=== PATIENT | female | born 1950 | race Caucasian/White ===

== ENCOUNTER 2016-04-01 21:23 | Observation (INO) | payer OTHER, MEDICARE ==
[2016-04-01] MEDS ORDERED: Sodium Chloride 0.9% 1000 ML 1,000 ML IV SCH (22:00)
[2016-04-01] MEDS ORDERED: DILAUDID 1 MG/ML INJECTION IV ONE (22:00)
[2016-04-01] MEDS ORDERED: Phenergan 25 MG INJ IM ONE (22:00)
--- NOTE | 2016-04-01 22:05 | ERPHSYRPT ---
- History of Present Illness Time Seen by Provider: 04/01/16 21:52 Historian: patient Patient Subjective Stated Complaint: pt ate [employer] at 1630 and thinks she has food poisoning -she vomited 2 times [employer] took zofran witout releif co abd cramping and chilling no fever -noone at home sick Triage Nursing Assessment: pt is awakena and alert and able to answer questions moaning and holding her abd Physician History: CC: vomiting Hx: 65 y/o patient of Dr Walters. She ate [employer] [place] around 4PM. Later started with cramping in abdomen that was severe as well as severe nausea and vomiting not relieved by zofran. Chills but no fever. Normal urination. She had prior nephrectomy and cholecystectomy. No chest pain. Cramping is severe. No diarrhea. Timing/Duration: today Severity of Pain-Max: severe Severity of Pain-Current: severe Allergies/Adverse Reactions: No Known Drug Allergies Allergy (Verified 04/01/16 22:04) Home Medications: Amlodipine Besylate 5 mg [Norvasc 5 mg] 5 mg PO DAILY 10/27/12 [History] Ergocalciferol (Vitamin D2) [Vitamin D2] 50,000 unit PO DAILY 11/06/14 [History] Lisinopril 10 mg [Zestril 10 MG] 10 mg PO DAILY 11/06/14 [History] Hx Tetanus, Diphtheria Vaccination/Date Given: No Hx Influenza Vaccination/Date Given: No Hx Pneumococcal Vaccination/Date Given: No Immunizations Up to Date: Yes - Review of Systems Constitutional: Chills, No Fever Eyes: No Symptoms Ears, Nose, & Throat: No Symptoms Respiratory: No Cough, No Dyspnea Cardiac: No Chest Pain Abdominal/Gastrointestinal: Abdominal Pain, Nausea, Vomiting, No Diarrhea Genitourinary Symptoms: No Dysuria Skin: No Rash Neurological: No Focal Weakness, No Headache, No Parasthesia All Other Systems: Reviewed and Negative - Past Medical History Pertinent Past Medical History: Yes Neurological History: No Pertinent History ENT History: No Pertinent History Cardiac History: Hypertension Respiratory History: No Pertinent History Endocrine Medical History: No Pertinent History Musculoskeletal History: No Pertinent History GI Medical History: No Pertinent History History: No Pertinent History Psycho-Social History: No Pertinent History Female Reproductive Disorders: No Pertinent History Other Medical History: 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 - Past Surgical History Past Surgical History: Yes Neuro Surgical History: No Pertinent History Cardiac: No Pertinent History Respiratory: No Pertinent History Gastrointestinal: No Pertinent History Genitourinary: Kidney Surgery Musculoskeletal: No Pertinent History Other Surgical History: KIDNEY REMOVED - Social History Smoking Status: Former smoker Exposure to second hand smoke: No Drug Use: none Patient Lives Alone: No - Female History Hx Last Menstrual Period: na - Nursing Vital Signs Nursing Vital Signs: Initial Vital Signs Temperature 98.8 F Temperature Source Oral Pulse Rate 70 Respiratory Rate 16 Blood Pressure 152/78 Pain Intensity 0 - Physical Exam General Appearance: alert, other (pleasant lady) Eye Exam: PERRL/EOMI, No scleral icterus Ears, Nose, Throat Exam: normal ENT inspection, dry mucous membranes Neck Exam: normal inspection, non-tender, supple Respiratory Exam: normal breath sounds, lungs clear Cardiovascular Exam: regular rate/rhythm Gastrointestinal/Abdomen Exam: soft, tenderness (diffuse), distention, guarding (mild) Extremity Exam: normal inspection, No tenderness Neurologic Exam: alert, oriented x 3, cooperative, sensation nml, No motor deficits Skin Exam: warm, dry, pale - Course Nursing assessment & vital signs reviewed: Yes EKG Interpreted by Me: RATE (66), Sinus Rhythm, NORMAL AXIS, NORMAL INTERVALS, NORMAL QRS (with somewhat poor R progression), Non-specific ST Changes - Radiology Exams AAS X-ray Interpretation: Reviewed by me (nonspecific bowel gas pattern) - CT Exams abd/pelvis CT Interpretation: Tele-radiologist Report (small free fluid, small right pleural effusion) Ordered Tests: Active Orders 24 hr Category Date Time Status Cath for Specimen-Straight STAT Care 04/01/16 22:00 Active EKG-ER Only STAT Care 04/01/16 22:00 Active IV Insertion STAT Care 04/01/16 22:00 Active NPO (ED) STAT Care 04/01/16 22:00 Active ABDOMEN AND PELVIS W/0 CONTRAS [CT] Stat Exams 04/01/16 23:17 Taken OBSTR/ACUTE ABDOMEN SERIES Stat Exams 04/01/16 22:00 Taken CBC W DIFF Stat Lab 04/01/16 21:46 Completed CMP Stat Lab 04/01/16 21:46 Completed LIPASE Stat Lab 04/01/16 21:46 Completed Lactic Acid Urgent Lab 04/01/16 22:00 Ordered UA W/ MICROSCOPIC Stat Lab 04/01/16 23:00 Completed Medication Summary Generic Name Dose Route Start Last Admin Trade Name Cherry PRN Reason Stop Dose Admin Sodium Chloride 1,000 mls @ 200 mls/hr 04/01/16 22:00 04/01/16 22:11 Sodium Chloride 0.9% 1000 Ml IV 05/01/16 21:59 200 mls/hr .Q5H ATILIO Administration Discontinued Medications Generic Name Dose Route Start Last Admin Trade Name Cherry PRN Reason Stop Dose Admin Hydromorphone HCl 0.5 mg 04/01/16 22:00 04/01/16 22:11 Dilaudid 1 Mg/Ml Injection IV 04/01/16 22:01 0.5 mg STAT ONE Administration Hydromorphone HCl Confirm 04/01/16 22:08 Dilaudid 1 Mg/Ml Injection Administered 04/01/16 22:09 Dose 1 mg .ROUTE .STK-MED ONE Sodium Chloride Confirm 04/01/16 22:09 Sodium Chloride 0.9% 1000 Ml Administered 04/01/16 22:10 Dose 1,000 mls @ ud .ROUTE .STK-MED ONE Ondansetron HCl 4 mg 04/01/16 23:24 04/01/16 23:26 Zofran 4 Mg/2 Ml Vial IV 04/01/16 23:25 4 mg STAT ONE Administration Ondansetron HCl Confirm 04/01/16 23:25 Zofran 4 Mg/2 Ml Vial Administered 04/01/16 23:26 Dose 4 mg .ROUTE .STK-MED ONE Promethazine HCl 12.5 mg 04/01/16 22:00 04/01/16 22:11 Phenergan 25 Mg Inj IM 04/01/16 22:01 12.5 mg STAT ONE Administration Promethazine HCl Confirm 04/01/16 22:06 Phenergan 25 Mg Inj Administered 04/01/16 22:07 Dose 25 mg .ROUTE .STK-MED ONE Promethazine HCl 25 mg 04/02/16 00:09 Phenergan 25 Mg PO 04/02/16 00:10 STAT ONE Lab/Rad Data: Laboratory Result Diagrams 04/01/16 21:46 04/01/16 21:46 Laboratory Results 04/01/16 04/01/16 04/01/16 Range/Units 23:00 21:46 21:46 WBC 13.0 H (4.0-10.5) K/mm3 RBC 5.10 (4.1-5.4) M/mm3 Hgb 14.5 (12.0-16.0) gm/dl Hct 43.6 (35-47) % MCV 85.5 (78-100) fl MCH 28.4 (26-32) pg MCHC 33.3 (32-36) g/dl RDW 13.6 (11.5-14.0) % Plt Count 236 (150-450) K/mm3 MPV 10.8 H (6-9.5) fl Gran % 67.8 H (36.0-66.0) % Lymphocytes % 21.2 L (24.0-44.0) % Monocytes % 9.3 (0.0-12.0) % Eosinophils % 1.5 (0.00-5.0) % Basophils % 0.2 (0.0-0.4) % Basophils # 0.03 (0-0.4) Sodium 142 (136-145) mEq/L Potassium 4.0 (3.5-5.1) mEq/L Chloride 104 (98-107) mEq/L Carbon Dioxide 26.8 (21-32) mEq/L Anion Gap 15.0 (5-15) MEQ/L BUN 23 H (9-20) mg/dL Creatinine 1.65 H (0.55-1.30) mg/dl Estimated GFR 33 ML/MIN Glucose 132 H (70-110) MG/DL Calcium 8.5 (8.5-10.1) mg/dL Total Bilirubin 0.7 (0.2-1.0) mg/dL AST 35 (15-37) U/L ALT 32 (12-78) U/L Alkaline Phosphatase 99 (46-116) U/L Serum Total Protein 7.8 (6.4-8.2) gm/dL Albumin 4.0 (3.4-5.0) g/dL Lipase 253 (73-393) U/L Ur Collection Type CATH Urine Color YELLOW (YELLOW) Urine Appearance CLEAR (CLEAR) Urine pH 6.5 (5-6) Ur Specific Foley 1.020 (1.005-1.025) Urine Protein NEGATIVE (Negative) Urine Glucose (UA) NEGATIVE (NEGATIVE) mg/dL Urine Ketones TRACE (NEGATIVE) Urine Nitrite NEGATIVE (NEGATIVE) Urine Bilirubin NEGATIVE (NEGATIVE) Urine Urobilinogen 1 (0-1) mg/dL Urine WBC (Auto) NEGATIVE (NEGATIVE) Urine RBC (Auto) TRACE-INTACT (0-5) Diaz/ul Urine Microscopic RBC 2-5 (0-2) /HPF Urine Microscopic WBC 0-2 (0-5) /HPF Ur Epithelial Cells RARE (FEW) /HPF Urine Bacteria RARE (NEGATIVE) /HPF Specimen Received 04/01/16 2300 - Progress Progress Note: 04/02/16 00:10 Pt feels better with meds and IVF. She has solitary kidney. The creat is stable. She wants to go home with phenergan pills. Will release with instr. Counseled pt/family regarding: lab results, diagnosis, need for follow-up, rad results - Departure Time of Disposition: 00:11 Departure Disposition: Home Clinical Impression: Vomiting Qualifiers: Vomiting type: unspecified Vomiting Intractability: intractable Nausea presence : with nausea Qualified Code(s): R11.2 - Nausea with vomiting, unspecified Condition: Fair Critical Care Time: No Referrals: SADA WALTERS MD [Primary Care Provider] - Instructions: Vomiting -- Adult Additional Instructions: VOMITING AND DIARRHEA 1. Take only small amounts of clear, cool liquids at frequent intervals as tolerated for the next 24-48 hours. Avoid milk products and orange juice. Clear liquids are those liquids which you can see through. 2. Pedialyte and popsicles are recommended clear liquids. 3. If the condition worsens you should contact your family physician or return to the emergency department for re-evaluation. Rx phenergan tablet every 6 hours for nausea. No driving tonite or while taking phenergan. Off work Monday. Follow up with Dr Walters next week. Return for high fever, passing blood, worsened pain or concerns. Prescriptions: Promethazine HCl 25 mg [Phenergan 25 mg] 25 mg PO Q6H PRN PRN #10 tablet PRN Reason: Nausea/Vomiting
[2016-04-01] MEDS ORDERED: Phenergan 25 MG INJ ONE (22:06)
[2016-04-01] MEDS ORDERED: DILAUDID 1 MG/ML INJECTION ONE (22:08)
[2016-04-01 22:09] LABS: BASOPHIL % 0.2 % (0.0-0.4); Eosinophil % 1.5 % (0.00-5.0); Granulocytes % 67.8 % (36.0-66.0); Lymphocytes % 21.2 % (24.0-44.0); Mean Cell Volume 85.5 fl (78-100); Mean Corpuscular Hemoglobin 28.4 pg (26-32); Mean Platelet Volume 10.8 fl (6-9.5); Monocytes % 9.3 % (0.0-12.0); Platelet Count 236 K/mm3 (150-450); Red Cell Distribution Width 13.6 % (11.5-14.0)
[2016-04-01] MEDS ORDERED: Sodium Chloride 0.9% 1000 ML 1,000 ML ONE (22:09)
[2016-04-01 22:20] LABS: BILIRUBIN,TOTAL 0.7 mg/dL (0.2-1.0); Carbon Dioxide 26.8 mEq/L (21-32); Total Protein 7.8 gm/dL (6.4-8.2)
[2016-04-01] MEDS ORDERED: Zofran 4 MG/2 ML VIAL IV ONE (23:24)
[2016-04-01] MEDS ORDERED: Zofran 4 MG/2 ML VIAL ONE (23:25)
[2016-04-01 23:32] LABS: COMPLETE URINE MICROSCOPIC? YES; Collection Type CATH; Ph 6.5 (5-6)
[2016-04-01 23:33] LABS: Bacteria RARE /HPF (NEGATIVE); Epithelial Cells RARE /HPF (FEW); WBC 0-2 /HPF (0-5)
[2016-04-02] MEDS ORDERED: PHENERGAN 25 MG ONE (00:13)
[2016-04-02] MEDS: PHENERGAN 25 MG PO ONE ×2 (00:16→03:33)
[2016-04-02] MEDS ORDERED: Phenergan 25 MG INJ IM ONE (00:40)
[2016-04-02] MEDS ORDERED: DILAUDID 1 MG/ML INJECTION IV ONE ×2 (00:40→00:43)
[2016-04-02] MEDS ORDERED: Phenergan 25 MG INJ ONE (00:44)
[2016-04-02] MEDS ORDERED: DILAUDID 1 MG/ML INJECTION ONE (00:44)
[2016-04-02] MEDS ORDERED: Sodium Chloride 0.9% 1000 ML 1,000 ML ONE (00:44)
[2016-04-02] MEDS: Sodium Chloride 0.9% 1000 ML 1,000 ML IV SCH ×2 (00:50→08:41)
[2016-04-02] MEDS ORDERED: DILAUDID 2 MG INJECTION IV PRN (02:03)
[2016-04-02] MEDS ORDERED: Zofran 4 MG/2 ML VIAL IV PRN (02:03)
[2016-04-02 05:49] LABS: BASOPHIL % 0.2 % (0.0-0.4); Eosinophil % 0.5 % (0.00-5.0); Granulocytes % 78.9 % (36.0-66.0); Lymphocytes % 11.7 % (24.0-44.0); Mean Cell Volume 87.3 fl (78-100); Mean Corpuscular Hemoglobin 28.1 pg (26-32); Mean Platelet Volume 10.6 fl (6-9.5); Monocytes % 8.7 % (0.0-12.0); Platelet Count 218 K/mm3 (150-450); Red Blood Count 4.48 M/mm3 (4.1-5.4); Red Cell Distribution Width 13.7 % (11.5-14.0); White Blood Count 11.2 K/mm3 (4.0-10.5)
[2016-04-02 06:21] LABS: ALBUMIN 3.2 g/dL (3.4-5.0); ANION GAP 13.5 MEQ/L (5-15); BILIRUBIN,TOTAL 0.7 mg/dL (0.2-1.0); Carbon Dioxide 24.6 mEq/L (21-32); Potassium 4.7 mEq/L (3.5-5.1); Total Protein 6.4 gm/dL (6.4-8.2)
--- NOTE | 2016-04-02 08:57 | XRAY ---
Indication: Abdominal pain and emesis. Comparison: KUB of November 11, 2014. 2 views of the abdomen demonstrates mild air distended bowel loops with synchronous fluid leveling, ileus versus enteritis. No focal bowel dilatation, obstruction, or free air. Cholecystectomy and right nephrectomy clips. Remaining solid organs are unremarkable. Osseous structures intact with spinal degenerative changes. Single PA chest slightly underinflated and clear. Heart is not enlarged. Bony thorax intact. Impression: Mild distended bowel loops with synchronous flow leveling, ileus versus enteritis. Nonacute one view chest.
--- NOTE | 2016-04-02 08:58 | XRAY ---
Indication: Abdominal pain, nausea, and vomiting. Multiple contiguous axial images obtained through the abdomen and pelvis without contrast as ordered. Comparison: November 10, 2014 Lung bases demonstrates tiny right base effusion. Lung bases otherwise clear. Heart is not enlarged. Stomach and small bowel loops are moderately fluid distended with synchronous fluid leveling, ileus versus gastroenteritis. Small pelvic free fluid. No walled off fluid collection or free air. Colon demonstrates mild scatter colonic fecal debris. Appendix not seen. There has been right total nephrectomy and cholecystectomy. Fatty liver without focal solid/cystic mass. Remaining pancreas, spleen, adrenal glands, left kidney, left ureter, urinary bladder, and uterus appear unremarkable for noncontrast exam. Minimal aortoiliac calcifications without AAA. Osseous structures intact with mild degenerative changes throughout the spine. Impression: 1. Fluid distended stomach and small bowel loops with synchronous fluid leveling. Rule out ileus versus gastroenteritis. Small pelvic free fluid may be reactive. 2. Incidental fatty liver and tiny right lung base effusion. Comment: Preliminary interpretation was made by [facility]. Stomach and bowel findings not reported. I gave telephone report to Dr. Black in the ER at 0850 hrs. on August 31, 2016. CTDI is 21.48
[2016-04-02] MEDS ORDERED: Pepcid 20 MG VIAL IV SCH (10:00)
[2016-04-02] MEDS ORDERED: Zestril 10 MG PO SCH (10:00)
[2016-04-02 16:20] VITALS: BP 141/67; PULSE 65; O2SAT 98
--- NOTE | 2016-04-02 20:22 | XRAY ---
Indication: Food poisoning. Comparison: One day earlier. KUB demonstrates nonspecific nonobstructed bowel gas pattern again with cholecystectomy clips and spinal degenerative changes. No new or acute findings.
[2016-04-03] MEDS ORDERED: NORVASC 5 MG PO SCH (10:00)
[2016-04-04] MEDS ORDERED: VITAMIN D2 PO SCH (10:00)
--- NOTE | 2016-04-05 11:14 | DS ---
DISCHARGE DIAGNOSES: 1) NAUSEA/VOMITING, RESOLVED. 2) ABDOMINAL PAIN, RESOLVED. HOSPITAL COURSE: Queta Austin is a 65 year-old woman with past medical history of hypertension, chronic renal insufficiency. She presented to the emergency room yesterday with episodes of abdominal cramping, multiple episodes of nausea, vomiting which were note relieved with Zofran. She had chills but no fever. She reported no diarrhea or urinary complaints. The symptoms had started reportedly after she ate [employer] yesterday at around 1630 hours. Upon initial evaluation in the emergency room she was noted to have blood pressure 152/70, heart rate 70, respiratory rate 16, and temperature 98.8F. She was treated with Dilaudid 0.5 mg IV x1, Dilaudid 1 mg IV x1, Zofran 4 mg IV x1, normal saline 1 liter, Phenergan 12.5 mg IM x1, Phenergan 25 mg p.o. x1. Subsequently plan was to send her home however her nausea had returned and she was admitted to medical floor for observation. Since admission she has had no further recurrence of nausea, vomiting, abdominal cramping/pain at all since about 0200 hours this morning. She states that she has been able to eat fine and has been ambulating without difficulty. She feels well and is wishing to go home today. PAST MEDICAL HISTORY: As noted above. 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 SOCIAL HISTORY: The patient is a former smoker, denies illicit drug use. FAMILY HISTORY: Noncontributory. MEDICATIONS: Current medications were reviewed. The patient states that she does alternate between blood pressure medications however those are being directed by nephrology recommendations. ALLERGIES: NKDA. REVIEW OF SYSTEMS: Denies headache or dizziness. Denies chest pain, increased shortness of breath or cough. History of abdominal pain, nausea and vomiting that has resolved. Denies constipation, diarrhea. Denies urinary complaints. PHYSICAL EXAMINATION: Elderly woman lying comfortably in bed, not in acute distress. VITAL SIGNS: Blood pressure 141/67, heart rate 65, respiratory rate 20, temperature 97.8F. Oxygen saturation 97% on room air. HEENT: No pallor or icterus is noted. NECK: No JVD is present. CVS: S1, S2 present. RESPIRATORY: Breath sounds are bilaterally diminished and clear to auscultation. ABDOMEN: Obese, soft, nontender. NEURO: She is alert, oriented x3. Evaluation of motor strength upper and lower extremities reveals grossly intact motor strength. EXTREMITIES: No edema on bilateral lower extremities. LABORATORY DATA AND TESTS: Labs from 04/01/2016 were reviewed. Today's labs showed CBC with white blood cell count 11.2 otherwise unremarkable. Today's CMP showed chloride of 109, BUN 23, creatinine 1.50, glucose 126. Lipase within normal limits. UA showed rare bacteria, epithelial cells, trace red blood cells. Acute abdomen series from 04/01/2016 showed mild distended bowel loops with synchronous flow leveling, ileus versus enteritis nonacute. CT scan of abdomen and pelvis showed fluid distended stomach and small bowel loops with increased fluid leveling; rule out ileus versus gastroenteritis, fatty liver, antilipid deficiency. ASSESSMENT: As noted above. PLAN: The patient was admitted with intractable nausea and vomiting after eating at [facility]. She underwent work up and treatment. As noted she has clinically improved and her symptoms have resolved. She is tolerating diet well. She remained hemodynamically stable. She was ambulated without difficulty and has tolerated diet. Will obtain follow up KUB. If negative will discharge the patient home. Will continue PRN Protonix. Also will add antibiotics for possible urinary tract infection in addition to being placed on Protonix. Please refer to discharge medication list from 04/02/2016 for details of medication list on discharge. I have advised the patient to obtain repeat CMP and CBC in the next three to four days and follow up with Dr. Gracia in ten days. Compliance with diet and medications was stressed. I have advised her to return to the Emergency Room [facility] if any new signs and symptoms or reappearance of previous signs and symptoms are noted. The patient's clinical condition, work-up results and plan of management were discussed with her. She seems to be in understanding and agreement.
== END 2016-04-02 19:50 | disposition home or self-care (01) ==
LOC: ED 21:23 → MED SURG 04-02 01:51
PROVIDERS: ADMIT General Practice; ATTEND General Practice
DX: R11.2 Nausea with vomiting, unspecified (principal); R10.9 Unspecified abdominal pain; I12.9 Hypertensive chronic kidney disease with stage 1 through stage 4 chronic kidney disease, or unspecified chronic kidney disease; N18.9 Chronic kidney disease, unspecified
CPT/HCPCS: 36000; 36415; 74000; 74022; 74176; 80053; 81000; 83605; 83690; 85025; 93005; 96360; 96361; 96372; 96374; 96375; 96376; 99284; G0378; J1170; J2405; J2550; P9612

== ENCOUNTER 2023-03-19 10:34 | Observation (INO) | payer MEDICARE ==
[2023-03-19] MEDS ORDERED: DUONEB 0.5-3 MG/3 ml Neb IH ONE ×2 (11:39→11:42)
[2023-03-19 11:57] LABS: Absolute Neutrophil Ct (ANC) 5.95 x10^3/uL (1.4-6.9); BASOPHIL % 0.4 % (0.0-0.4); Basophil (Absolute #) 0.03 x10^3/uL (0-0.4); Eosinophil % 0.9 % (0.00-5.0); Eosinophil (Absolute #) 0.07 x10^3/uL (0-0.5); Hematocrit 46.7 % (35-47); Hemoglobin 15.3 g/dL (12.0-16.0); IMMATURE GRAN # 0.02 x10^3u/L (0.00-0.03); IMMATURE GRAN % 0.3 % (0.00-0.4); Lymphocyte (Absolute #) 1.24 x10^3/uL (1.0-4.6); Lymphocytes % 15.8 % (24.0-44.0); Mean Cell Volume 86.5 fL (78-100); Mean Corpuscular Hemoglobin 28.3 pg (26-32); Mean Corpuscular Hgb Concent. 32.8 g/dL (32-36); Mean Platelet Volume 10.6 fL (7.5-11.0); Monocyte (Absolute #) 0.52 x10^3/uL (0.0-1.3); Monocytes % 6.6 % (0.0-12.0); Platelet Count 241 x10^3/uL (150-450); Red Cell Distribution Width 13.2 % (11.5-14.0); White Blood Count 7.8 x10^3/uL (4.0-10.5)
[2023-03-19 12:14] LABS: ALBUMIN 4.3 g/dL (3.5-5.0); ANION GAP 15.8 MEQ/L (5-15); BILIRUBIN,TOTAL 1.5 mg/dL (0.2-1.3); Creatinine 1 1.99 mg/dL (0.52-1.04); EST GLOMERULAR FILTRATION RATE 26.1 ML/MIN; Potassium 4.2 mmol/L (3.5-5.1); Total Protein 7.9 g/dL (6.3-8.2)
[2023-03-19 12:58] LABS: INFLUENZA A NEGATIVE (NEGATIVE); INFLUENZA B NEGATIVE (NEGATIVE); RESPIRATORY SYNCTIAL VIRUS NEGATIVE (NEGATIVE); SARS-CoV-2 Xpert Express NEGATIVE (NEGATIVE)
[2023-03-19] MEDS ORDERED: BABY ASPIRIN 81 MG CHEW PO ONE (13:02)
[2023-03-19] MEDS ORDERED: Zithromax 500 MG/ 250 ML NaCl Premix 500 MG/250 ML IVPB IV STA (13:03)
[2023-03-19] MEDS ORDERED: ROCEPHIN 1 Gm-D5w 50 ml Bag** 1 G/50 ML IVPB IV STA (13:03)
--- NOTE | 2023-03-19 13:08 | ERPHSYRPT ---
- History of Present Illness Time Seen by Provider: 03/19/23 11:21 Source: patient Exam Limitations: no limitations Patient Subjective Stated Complaint: pt here for cough and sob for a week now, no fever Triage Nursing Assessment: pt alert, walked in , sob with excertion, slight cough,nonproductive, chest clear, no edema noted Physician History: 72 years old female with a history of hypertension, hyperlipidemia, questionable history of congestive heart failure, CKD presented in the ER with 1 week history of cough and congestion with progressive worsening since morning. Patient reports earlier this morning she was having hard time breathing, was feeling weak fatigued tired. Having increased nonproductive cough with no fever or chills. Denies any known sick contact. Denies any chest pain or palpitations. No known history of coronary artery disease.Patient was hypoxic to 87/88% on presentation and improved with 2 L oxygen to 96% Allergies/Adverse Reactions: No Known Drug Allergies Allergy (Verified 03/19/23 10:35) Home Medications: Amlodipine Besylate 5 mg [Norvasc 5 mg] 5 mg PO UD 10/27/12 [History] Ergocalciferol (Vitamin D2) [Vitamin D2] 50,000 unit PO WEEKLY 11/06/14 [History] Indapamide 1 ea DAILY 03/19/23 [History] Hx Tetanus, Diphtheria Vaccination/Date Given: No Hx Influenza Vaccination/Date Given: No Hx Pneumococcal Vaccination/Date Given: No Immunizations Up to Date: Yes Travel Risk - International Travel Have you traveled outside of the country in past 3 weeks: No - Coronavirus Screening Are you exhibiting any of the following symptoms?: Yes Symptoms: Cough: New Onset, Shortness of Breath Close contact with a COVID-19 positive Pt in past 14-21 Days: No - Vaccine Status Have you recieved a Covid-19 vaccination: Yes 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 - Vaccination Dates Date of 2cond Vaccination (if applicable): 2020 - Review of Systems Constitutional: Fatigue, Weakness Eyes: No Symptoms Ears, Nose, & Throat: No Symptoms Respiratory: Cough, Dyspnea, Dyspnea on Exertion (LORENZO), Wheezing Cardiac: No Symptoms Abdominal/Gastrointestinal: No Symptoms Genitourinary Symptoms: No Symptoms Musculoskeletal: No Symptoms Skin: No Symptoms Neurological: No Symptoms Endocrine: No Symptoms Hematologic/Lymphatic: No Symptoms - Past Medical History Pertinent Past Medical History: Yes Neurological History: No Pertinent History ENT History: No Pertinent History Cardiac History: Hypertension Respiratory History: No Pertinent History Endocrine Medical History: Other Musculoskeletal History: Osteoarthritis GI Medical History: No Pertinent History History: Other Psycho-Social History: No Pertinent History Female Reproductive Disorders: No Pertinent History Other Medical History: 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 HX CHOLECYSTECTOMY 2014. - Past Surgical History Past Surgical History: Yes Neuro Surgical History: No Pertinent History Cardiac: No Pertinent History Respiratory: No Pertinent History Gastrointestinal: Cholecystectomy Genitourinary: Kidney Surgery Musculoskeletal: No Pertinent History Female Surgical History: No Pertinent History Other Surgical History: KIDNEY REMOVED - Social History Smoking Status: Former smoker Exposure to second hand smoke: No Drug Use: none Patient Lives Alone: No - Nursing Vital Signs Nursing Vital Signs: Initial Vital Signs Respiratory Rate 20 03/19/23 10:34 O2 Sat by Pulse Oximetry 97 03/19/23 10:34 Pain Scale Pain Intensity 9 - Physical Exam General Appearance: no apparent distress, alert Eye Exam: PERRL/EOMI Ears, Nose, Throat Exam: hearing grossly normal, normal ENT inspection Neck Exam: normal inspection, non-tender, supple, full range of motion Respiratory Exam: normal breath sounds, lungs clear Cardiovascular/Chest Exam: normal heart sounds, regular rate/rhythm Abdominal/Gastrointestinal Exam: soft, normal bowel sounds, No tenderness Extremity Exam: non-tender, normal range of motion Neurologic Exam: alert, oriented x 3, cooperative Skin Exam: normal color SpO2 Interpretation: O2 applied SpO2: 92 O2 Delivery: Nasal Cannula - Course EKG Interpreted by Me: RATE ([id number]), Sinus Rhythm, NORMAL AXIS, Q-wave, Non- specific ST Changes Ordered Tests: Active Orders 24 hr Category Date Time Status Rubber Liner STAT Care 03/19/23 11:40 Active EKG-ER Only STAT Care 03/19/23 11:39 Active Oxygen-ED Only Nasal Cannula 2 lpm Care 03/19/23 11:39 Active CHEST 1 VIEW (PORTABLE) Stat Exams 03/19/23 11:19 Taken BLOOD CULTURE Stat Lab 03/19/23 12:15 Received CBC W DIFF Stat Lab 03/19/23 11:12 Completed CMP Stat Lab 03/19/23 11:12 Completed Lactic Acid Stat Lab 03/19/23 11:55 Completed MAGNESIUM Stat Lab 03/19/23 11:58 Completed NT PRO BNPII Stat Lab 03/19/23 11:58 Completed TROPONIN Q4H Lab 03/19/23 11:58 Completed TROPONIN Q4H Lab 03/19/23 15:45 Ordered TROPONIN Q4H Lab 03/19/23 19:45 Ordered UA W/RFX UR CULTURE Stat Lab 03/19/23 11:39 Ordered Respiratory Therapy Assessment DAILY RT 03/19/23 11:49 Active Medication Summary Generic Name Dose Route Start Last Admin Trade Name Freq PRN Reason Stop Dose Admin Azithromycin 500 mg in 250 mls @ 250 mls/hr 03/19/23 13:03 Zithromax 500 Mg/ 250 Ml Nacl Premix IV 03/19/23 14:02 STAT STA Ceftriaxone Sodium/Dextrose 1 g in 50 mls @ 100 mls/hr 03/19/23 13:03 Rocephin 1 Gm-D5w 50 Ml Bag IV 03/19/23 13:32 STAT STA Discontinued Medications Generic Name Dose Route Start Last Admin Trade Name Freq PRN Reason Stop Dose Admin Albuterol/Ipratropium 3 ml 03/19/23 11:39 03/19/23 11:46 Ipratropium/Albuterol Sulfate 3 Ml Ampul.Neb IH 03/19/23 11:40 3 ml STAT ONE Administration Albuterol/Ipratropium Confirm 03/19/23 11:42 Ipratropium/Albuterol Sulfate 3 Ml Ampul.Neb Administered 03/19/23 11:43 Dose 3 ml IH .STK-MED ONE Aspirin 324 mg 03/19/23 13:02 Aspirin 81 Mg Tab.Chew PO 03/19/23 13:03 STAT ONE Lab/Rad Data: Laboratory Result Diagrams 03/19/23 11:12 03/19/23 11:12 Laboratory Results 03/19/23 03/19/23 12 Range/Units 12:05 11:58 11:58 WBC (4.0-10.5) x10^3/uL RBC (4.1-5.4) x10^6/uL Hgb (12.0-16.0) g/dL Hct (35-47) % MCV (78-100) fL MCH (26-32) pg MCHC (32-36) g/dL RDW (11.5-14.0) % Plt Count (150-450) x10^3/uL MPV (7.5-11.0) fL Gran % (36.0-66.0) % Immature Gran % (Auto) (0.00-0.4) % Nucleat RBC Rel Count (0.00-0.1) % Eos # (Auto) (0-0.5) x10^3/uL Immature Gran # (Auto) (0.00-0.03) x10^3u/L Absolute Lymphs (auto) (1.0-4.6) x10^3/uL Absolute Monos (auto) (0.0-1.3) x10^3/uL Absolute Nucleated RBC (0.00-0.01) x10^3u/L Lymphocytes % (24.0-44.0) % Monocytes % (0.0-12.0) % Eosinophils % (0.00-5.0) % Basophils % (0.0-0.4) % Absolute Granulocytes (1.4-6.9) x10^3/uL Basophils # (0-0.4) x10^3/uL Sodium (137-145) mmol/L Potassium (3.5-5.1) mmol/L Chloride (98-107) mmol/L Carbon Dioxide (22-30) mmol/L Anion Gap (5-15) MEQ/L BUN (7-17) mg/dL Creatinine (0.52-1.04) mg/dL Estimated GFR ML/MIN Glucose (74-106) mg/dL Lactic Acid (0.4-2.0) Calcium (8.4-10.2) mg/dL Magnesium (1.6-2.3) mg/dL Total Bilirubin (0.2-1.3) mg/dL AST (14-36) U/L ALT (0-35) U/L Alkaline Phosphatase (38-126) U/L Troponin I 0.141 H* (0.000-0.034) ng/mL NT-Pro-B Natriuret Pep 527 (<300) pg/mL Serum Total Protein (6.3-8.2) g/dL Albumin (3.5-5.0) g/dL Influenza Type A Ag NEGATIVE (NEGATIVE) Influenza Type B Ag NEGATIVE (NEGATIVE) RSV (PCR) NEGATIVE (NEGATIVE) SARS-CoV-2 (PCR) NEGATIVE (NEGATIVE) 03/19/23 03/19/23 03/19/23 Range/Units 11:58 11:55 11:12 WBC (4.0-10.5) x10^3/uL RBC (4.1-5.4) x10^6/uL Hgb (12.0-16.0) g/dL Hct (35-47) % MCV (78-100) fL MCH (26-32) pg MCHC (32-36) g/dL RDW (11.5-14.0) % Plt Count (150-450) x10^3/uL MPV (7.5-11.0) fL Gran % (36.0-66.0) % Immature Gran % (Auto) (0.00-0.4) % Nucleat RBC Rel Count (0.00-0.1) % Eos # (Auto) (0-0.5) x10^3/uL Immature Gran # (Auto) (0.00-0.03) x10^3u/L Absolute Lymphs (auto) (1.0-4.6) x10^3/uL Absolute Monos (auto) (0.0-1.3) x10^3/uL Absolute Nucleated RBC (0.00-0.01) x10^3u/L Lymphocytes % (24.0-44.0) % Monocytes % (0.0-12.0) % Eosinophils % (0.00-5.0) % Basophils % (0.0-0.4) % Absolute Granulocytes (1.4-6.9) x10^3/uL Basophils # (0-0.4) x10^3/uL Sodium 138 (137-145) mmol/L Potassium 4.2 (3.5-5.1) mmol/L Chloride 104 (98-107) mmol/L Carbon Dioxide 22 (22-30) mmol/L Anion Gap 15.8 H (5-15) MEQ/L BUN 20 H (7-17) mg/dL Creatinine 1.99 H (0.52-1.04) mg/dL Estimated GFR 26.1 ML/MIN Glucose 166 H (74-106) mg/dL Lactic Acid 2.0 (0.4-2.0) Calcium 9.0 (8.4-10.2) mg/dL Magnesium 2.1 (1.6-2.3) mg/dL Total Bilirubin 1.50 H (0.2-1.3) mg/dL AST 38 H (14-36) U/L ALT 31 (0-35) U/L Alkaline Phosphatase 109 (38-126) U/L Troponin I (0.000-0.034) ng/mL NT-Pro-B Natriuret Pep (<300) pg/mL Serum Total Protein 7.9 (6.3-8.2) g/dL Albumin 4.3 (3.5-5.0) g/dL Influenza Type A Ag (NEGATIVE) Influenza Type B Ag (NEGATIVE) RSV (PCR) (NEGATIVE) SARS-CoV-2 (PCR) (NEGATIVE) 03/19/23 Range/Units 11:12 WBC 7.8 (4.0-10.5) x10^3/uL RBC 5.40 (4.1-5.4) x10^6/uL Hgb 15.3 (12.0-16.0) g/dL Hct 46.7 (35-47) % MCV 86.5 (78-100) fL MCH 28.3 (26-32) pg MCHC 32.8 (32-36) g/dL RDW 13.2 (11.5-14.0) % Plt Count 241 (150-450) x10^3/uL MPV 10.6 (7.5-11.0) fL Gran % 76.0 H (36.0-66.0) % Immature Gran % (Auto) 0.3 (0.00-0.4) % Nucleat RBC Rel Count 0.0 (0.00-0.1) % Eos # (Auto) 0.07 (0-0.5) x10^3/uL Immature Gran # (Auto) 0.02 (0.00-0.03) x10^3u/L Absolute Lymphs (auto) 1.24 (1.0-4.6) x10^3/uL Absolute Monos (auto) 0.52 (0.0-1.3) x10^3/uL Absolute Nucleated RBC 0.00 (0.00-0.01) x10^3u/L Lymphocytes % 15.8 L (24.0-44.0) % Monocytes % 6.6 (0.0-12.0) % Eosinophils % 0.9 (0.00-5.0) % Basophils % 0.4 (0.0-0.4) % Absolute Granulocytes 5.95 (1.4-6.9) x10^3/uL Basophils # 0.03 (0-0.4) x10^3/uL Sodium (137-145) mmol/L Potassium (3.5-5.1) mmol/L Chloride (98-107) mmol/L Carbon Dioxide (22-30) mmol/L Anion Gap (5-15) MEQ/L BUN (7-17) mg/dL Creatinine (0.52-1.04) mg/dL Estimated GFR ML/MIN Glucose (74-106) mg/dL Lactic Acid (0.4-2.0) Calcium (8.4-10.2) mg/dL Magnesium (1.6-2.3) mg/dL Total Bilirubin (0.2-1.3) mg/dL AST (14-36) U/L ALT (0-35) U/L Alkaline Phosphatase (38-126) U/L Troponin I (0.000-0.034) ng/mL NT-Pro-B Natriuret Pep (<300) pg/mL Serum Total Protein (6.3-8.2) g/dL Albumin (3.5-5.0) g/dL Influenza Type A Ag (NEGATIVE) Influenza Type B Ag (NEGATIVE) RSV (PCR) (NEGATIVE) SARS-CoV-2 (PCR) (NEGATIVE) - Progress Progress: improved, re-examined Air Movement: good Progress Note: 72 years old is evaluated in the ER for cough and shortness of breath. Patient was hypoxic on presentation, placed on 2 L oxygen and improved to 96%. She is given DuoNeb and feeling better on reevaluation. EKG showed sinus rhythm with no acute ST elevations. Chest x-ray no obvious infiltrative processReviewed by me, official report is pending. 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 Patient is chest pain-free. She is offered aspirin which she declined. Elevation in troponin could be secondary to renal cause, no previous comparison available.Will continue to trend cardiac enzymes.Has negative COVID flu and RSV. I believe patient has some element of bronchitis and given a dose of Rocephin and Zithromax. Discussed with Dr. Sutton, reviewed history, workup, agreed with admission. I have discussed the results of workup with patient and family who understand and agree with it. 03/19/23 13:23 Blood Culture(s) Obtained: Yes Antibiotics given: Yes Discussed with Dr.: Other (Dr. Sutton) Will see patient in: hospital (observation) Counseled pt/family regarding: lab results, diagnosis, rad results Medical Desision Making - Independent Historian Additional History obtained from: Relative/friend - Discussion of managment Care discussed with:: hospitalist Reviewed:: Test results Agreed on:: Treatment plan Will see patient: in hospital - Diagnostic Testing Diagnostic test were ordered, analyzed, and reviewed by me: Yes Radiological Interpretation: Interpreted by me, Reviewed by me - Risk of complications The pt has a high risk of morbidity or mortality based on: Decision regarding hospitilization or escalation of hosp level of care - Departure Departure Disposition: Observation Clinical Impression: Acute hypoxic respiratory failure, Acute bronchitis, Elevated troponin Condition: Stable Critical Care Time: No Referrals: SADA WALTERS MD [Primary Care Provider] - Follow up/PCP as directed
[2023-03-19] MEDS ORDERED: ROCEPHIN 1 Gm-D5w 50 ml Bag** 1 G/50 ML IVPB IV ONE (13:19)
[2023-03-19] MEDS ORDERED: Zithromax 500 MG/ 250 ML NaCl Premix 500 MG/250 ML IVPB IV ONE (13:33)
--- NOTE | 2023-03-19 13:57 | PCM.HP ---
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 She presented in the ER with 1 week history of cough andSxs worse with any activity and improves with laying down. Pt reports chronic SOb since having COVID last year. Flu, COVID, and RSV testing negative. Denies any chest pain or palpitations. No known history of coronary artery disease. Patient was hypoxic to 87/88% on presentation and improved with 2 L oxygen to 96%. She was given antibiotics and breathing treatments in the ER. She remains on 2 LNC @ 92%. BL is RA. She does have an elevated troponin but denies CP. She refused aspirin in the ER. Chest XR is pending. Will continue to trend troponins. - Review of Systems Constitutional: Weakness, No Fever, No Chills Eyes: No Symptoms Ears, Nose, & Throat: No Symptoms Respiratory: Cough, Short Of Breath Cardiac: No Chest Pain, No Edema, No Syncope Abdominal/Gastrointestinal: No Abdominal Pain, No Nausea, No Vomiting, No Diarrhea Genitourinary Symptoms: No Dysuria Musculoskeletal: No Back Pain, No Neck Pain Skin: No Rash Neurological: No Dizziness, No Focal Weakness, No Sensory Changes Psychological: No Symptoms Endocrine: No Symptoms Hematologic/Lymphatic: No Symptoms Immunological/Allergic: No Symptoms Medications & Allergies Home Medications: Home Medication List Amlodipine Besylate 5 mg [Norvasc 5 mg] 10 mg PO UD 10/27/12 [History Confirmed 03/19/23] Ergocalciferol (Vitamin D2) [Vitamin D2] 50,000 unit PO WEEKLY 11/06/14 [History Confirmed 03/19/23] Indapamide 2.5 ea PO DAILY 03/19/23 [History Confirmed 03/19/23] Allergies/Adverse Reactions: Allergies Allergy/AdvReac Type Severity Reaction Status Date / Time No Known Drug Allergies Allergy Verified 03/19/23 10:35 - Past Medical History Past Medical History: Yes Neurological History: No Pertinent History ENT History: No Pertinent History Cardiac History: Hypertension Respiratory History: No Pertinent History Endocrine Medical History: Other Musculoskelatal History: Osteoarthritis GI Medical History: No Pertinent History History: Other Pyscho-Social History: No Pertinent History Reproductive Disorders: No Pertinent History Comment: HAD KIDNEY REMOVED DUE TO NONCANCEROUS MASS 2012. HX CHOLECYSTECTOMY 2014. - Past Surgical History Past Surgical History: Yes Neuro Surgical History: No Pertinent History Cardiac History: No Pertinent History Respiratory Surgery: No Pertinent History GI Surgical History: Cholecystectomy Genitourinary Surgical Hx: Kidney Surgery Musculskeletal Surgical Hx: No Pertinent History Female Surgical History: No Pertinent History Other Surgical History: KIDNEY REMOVED - Social History Smoking Status: Former smoker Exposure to second hand smoke: No Alcohol: None Drug Use: none - Physical Exam Vital Signs: Vital Signs - 24 hr Pulse Resp BP Pulse Ox 03/19/23 13:26 92 L 03/19/23 13:16 78 14 142/71 94 L 03/19/23 13:15 86 18 95 03/19/23 13:10 86 12 95 03/19/23 13:00 86 14 94 L 03/19/23 12:50 80 3 L 94 L 03/19/23 12:40 87 11 L 94 L 03/19/23 12:33 85 16 94 L 03/19/23 12:01 78/59 92 L 03/19/23 11:50 88 20 94 L 03/19/23 11:31 126/70 94 L 03/19/23 11:00 105/78 92 L 03/19/23 10:34 20 97 General Appearance: no apparent distress, alert Neurologic Exam: alert, oriented x 3, cooperative, normal mood/affect, nml cerebellar function, nml station & gait, sensation nml, No motor deficits Eye Exam: PERRL/EOMI, eyes nml inspection Ears, Nose, Throat Exam: normal ENT inspection, TMs normal, pharynx normal, moist mucous membranes Neck Exam: normal inspection, non-tender, supple, full range of motion Respiratory Exam: normal breath sounds, lungs clear, No respiratory distress Cardiovascular Exam: regular rate/rhythm, normal heart sounds, normal peripheral pulses Gastrointestinal/Abdomen Exam: soft, normal bowel sounds, No tenderness, No mass Back Exam: normal inspection, normal range of motion, No CVA tenderness, No vertebral tenderness Extremity Exam: normal inspection, normal range of motion, pelvis stable Skin Exam: normal color, warm, dry, No rash Lymphatic Exam: No adenopathy Results - Labs Lab/Micro Results: Lab Results-Last 24 Hours 03/19/23 03/19/23 03/19/23 Range/Units 11:12 11:12 11:55 WBC 7.8 (4.0-10.5) x10^3/uL RBC 5.40 (4.1-5.4) x10^6/uL Hgb 15.3 (12.0-16.0) g/dL Hct 46.7 (35-47) % MCV 86.5 (78-100) fL MCH 28.3 (26-32) pg MCHC 32.8 (32-36) g/dL RDW 13.2 (11.5-14.0) % Plt Count 241 (150-450) x10^3/uL MPV 10.6 (7.5-11.0) fL Gran % 76.0 H (36.0-66.0) % Immature Gran % (Auto) 0.3 (0.00-0.4) % Nucleat RBC Rel Count 0.0 (0.00-0.1) % Eos # (Auto) 0.07 (0-0.5) x10^3/uL Immature Gran # (Auto) 0.02 (0.00-0.03) x10^3u/L Absolute Lymphs (auto) 1.24 (1.0-4.6) x10^3/uL Absolute Monos (auto) 0.52 (0.0-1.3) x10^3/uL Absolute Nucleated RBC 0.00 (0.00-0.01) x10^3u/L Lymphocytes % 15.8 L (24.0-44.0) % Monocytes % 6.6 (0.0-12.0) % Eosinophils % 0.9 (0.00-5.0) % Basophils % 0.4 (0.0-0.4) % Absolute Granulocytes 5.95 (1.4-6.9) x10^3/uL Basophils # 0.03 (0-0.4) x10^3/uL Sodium 138 (137-145) mmol/L Potassium 4.2 (3.5-5.1) mmol/L Chloride 104 (98-107) mmol/L Carbon Dioxide 22 (22-30) mmol/L Anion Gap 15.8 H (5-15) MEQ/L BUN 20 H (7-17) mg/dL Creatinine 1.99 H (0.52-1.04) mg/dL Estimated GFR 26.1 ML/MIN Glucose 166 H (74-106) mg/dL Lactic Acid 2.0 (0.4-2.0) Calcium 9.0 (8.4-10.2) mg/dL Magnesium (1.6-2.3) mg/dL Total Bilirubin 1.50 H (0.2-1.3) mg/dL AST 38 H (14-36) U/L ALT 31 (0-35) U/L Alkaline Phosphatase 109 (38-126) U/L Troponin I (0.000-0.034) ng/mL NT-Pro-B Natriuret Pep (<300) pg/mL Serum Total Protein 7.9 (6.3-8.2) g/dL Albumin 4.3 (3.5-5.0) g/dL Influenza Type A Ag (NEGATIVE) Influenza Type B Ag (NEGATIVE) RSV (PCR) (NEGATIVE) SARS-CoV-2 (PCR) (NEGATIVE) 03/19/23 03/19/23 03/19/23 Range/Units 11:58 11:58 11:58 WBC (4.0-10.5) x10^3/uL RBC (4.1-5.4) x10^6/uL Hgb (12.0-16.0) g/dL Hct (35-47) % MCV (78-100) fL MCH (26-32) pg MCHC (32-36) g/dL RDW (11.5-14.0) % Plt Count (150-450) x10^3/uL MPV (7.5-11.0) fL Gran % (36.0-66.0) % Immature Gran % (Auto) (0.00-0.4) % Nucleat RBC Rel Count (0.00-0.1) % Eos # (Auto) (0-0.5) x10^3/uL Immature Gran # (Auto) (0.00-0.03) x10^3u/L Absolute Lymphs (auto) (1.0-4.6) x10^3/uL Absolute Monos (auto) (0.0-1.3) x10^3/uL Absolute Nucleated RBC (0.00-0.01) x10^3u/L Lymphocytes % (24.0-44.0) % Monocytes % (0.0-12.0) % Eosinophils % (0.00-5.0) % Basophils % (0.0-0.4) % Absolute Granulocytes (1.4-6.9) x10^3/uL Basophils # (0-0.4) x10^3/uL Sodium (137-145) mmol/L Potassium (3.5-5.1) mmol/L Chloride (98-107) mmol/L Carbon Dioxide (22-30) mmol/L Anion Gap (5-15) MEQ/L BUN (7-17) mg/dL Creatinine (0.52-1.04) mg/dL Estimated GFR ML/MIN Glucose (74-106) mg/dL Lactic Acid (0.4-2.0) Calcium (8.4-10.2) mg/dL Magnesium 2.1 (1.6-2.3) mg/dL Total Bilirubin (0.2-1.3) mg/dL AST (14-36) U/L ALT (0-35) U/L Alkaline Phosphatase (38-126) U/L Troponin I 0.141 H* (0.000-0.034) ng/mL NT-Pro-B Natriuret Pep 527 (<300) pg/mL Serum Total Protein (6.3-8.2) g/dL Albumin (3.5-5.0) g/dL Influenza Type A Ag (NEGATIVE) Influenza Type B Ag (NEGATIVE) RSV (PCR) (NEGATIVE) SARS-CoV-2 (PCR) (NEGATIVE) 03/19/23 Range/Units 12:05 WBC (4.0-10.5) x10^3/uL RBC (4.1-5.4) x10^6/uL Hgb (12.0-16.0) g/dL Hct (35-47) % MCV (78-100) fL MCH (26-32) pg MCHC (32-36) g/dL RDW (11.5-14.0) % Plt Count (150-450) x10^3/uL MPV (7.5-11.0) fL Gran % (36.0-66.0) % Immature Gran % (Auto) (0.00-0.4) % Nucleat RBC Rel Count (0.00-0.1) % Eos # (Auto) (0-0.5) x10^3/uL Immature Gran # (Auto) (0.00-0.03) x10^3u/L Absolute Lymphs (auto) (1.0-4.6) x10^3/uL Absolute Monos (auto) (0.0-1.3) x10^3/uL Absolute Nucleated RBC (0.00-0.01) x10^3u/L Lymphocytes % (24.0-44.0) % Monocytes % (0.0-12.0) % Eosinophils % (0.00-5.0) % Basophils % (0.0-0.4) % Absolute Granulocytes (1.4-6.9) x10^3/uL Basophils # (0-0.4) x10^3/uL Sodium (137-145) mmol/L Potassium (3.5-5.1) mmol/L Chloride (98-107) mmol/L Carbon Dioxide (22-30) mmol/L Anion Gap (5-15) MEQ/L BUN (7-17) mg/dL Creatinine (0.52-1.04) mg/dL Estimated GFR ML/MIN Glucose (74-106) mg/dL Lactic Acid (0.4-2.0) Calcium (8.4-10.2) mg/dL Magnesium (1.6-2.3) mg/dL Total Bilirubin (0.2-1.3) mg/dL AST (14-36) U/L ALT (0-35) U/L Alkaline Phosphatase (38-126) U/L Troponin I (0.000-0.034) ng/mL NT-Pro-B Natriuret Pep (<300) pg/mL Serum Total Protein (6.3-8.2) g/dL Albumin (3.5-5.0) g/dL Influenza Type A Ag NEGATIVE (NEGATIVE) Influenza Type B Ag NEGATIVE (NEGATIVE) RSV (PCR) NEGATIVE (NEGATIVE) SARS-CoV-2 (PCR) NEGATIVE (NEGATIVE) - Radiology Impressions Radiology Exams & Impressions: Radiology Procedures Category Date Time Status CHEST 1 VIEW (PORTABLE) Stat Exams 03/19/23 11:19 Taken - Other Procedures and Tests Respiratory Therapy 03/19/23 13:43 Oxygen Nasal Cannula 2 lpm Respiratory Therapy Consult ONCE Assessment/Plan (1) Acute bronchitis Current Visit: Yes Status: Acute Assessment & Plan: - rocephin and zithromax gave in ER- continue zithromax - Duoneb gave in ER- cont. - Chest XR pending - 2LNC 92%- Baseline is RA - COVID/Flu/RSV negative - RT eval and treat - Guaifensin, benzonatate Code(s): J20.9 - ACUTE BRONCHITIS, UNSPECIFIED (2) Acute on chronic renal failure Current Visit: Yes Status: Acute Assessment & Plan: - Baseline creat 1.5 - Creat. 1.99 - encourage oral fluid intake - Hold thiazide diuretic- Indapamide - UA with culture pending Code(s): N17.9 - ACUTE KIDNEY FAILURE, UNSPECIFIED; N18.9 - CHRONIC KIDNEY DISEASE, UNSPECIFIED (3) Elevated troponin Current Visit: Yes Status: Acute Assessment & Plan: - Trop 0.141- trend - EKG reviewed in ER and non-concerning - Refused ASA in ER - Denies CP - may be 2:2 STEFANO - tele - heart healthy diet. Code(s): R79.89 - OTHER SPECIFIED ABNORMAL FINDINGS OF BLOOD CHEMISTRY (4) HTN (hypertension) Current Visit: Yes Status: Acute Assessment & Plan: - BP stable - hold Indapamide - Continue amlodipine Code(s): I10 - ESSENTIAL (PRIMARY) HYPERTENSION (5) Obesity (BMI 30.0-34.9) Current Visit: Yes Status: Acute Assessment & Plan: - advised diet and exercise control VTE: Heparin D/c plan: 1-2 days Next of kin: Mayra Gomez [phone] Code status: Full Code(s): E66.9 - OBESITY, UNSPECIFIED <JARON HERMAN - Last Filed: 03/19/23 20:55> History of Present Illness - Chief Complaint History of Present Illness: is a 72 year old female. - Physical Exam Vital Signs: Vital Signs - 24 hr Temp Pulse Resp BP BP Pulse Ox 03/19/23 15:02 77 20 100 03/19/23 13:58 97.4 F 94 H 16 173/78 93 L 03/19/23 13:26 92 L 03/19/23 13:16 78 14 142/71 94 L 03/19/23 13:15 86 18 95 03/19/23 13:10 86 12 95 03/19/23 13:00 86 14 94 L 03/19/23 12:50 80 3 L 94 L 03/19/23 12:40 87 11 L 94 L 03/19/23 12:33 85 16 94 L 03/19/23 12:01 78/59 92 L 03/19/23 11:50 88 20 94 L 03/19/23 11:31 126/70 94 L 03/19/23 11:00 105/78 92 L 03/19/23 10:34 20 97 Oxygen-Last 24 hours Oxygen Flowrate (L/min)-RT 2 Results - Labs Lab/Micro Results: Lab Results-Last 24 Hours 03/19/23 03/19/23 03/19/23 Range/Units 11:12 11:12 11:55 WBC 7.8 (4.0-10.5) x10^3/uL RBC 5.40 (4.1-5.4) x10^6/uL Hgb 15.3 (12.0-16.0) g/dL Hct 46.7 (35-47) % MCV 86.5 (78-100) fL MCH 28.3 (26-32) pg MCHC 32.8 (32-36) g/dL RDW 13.2 (11.5-14.0) % Plt Count 241 (150-450) x10^3/uL MPV 10.6 (7.5-11.0) fL Gran % 76.0 H (36.0-66.0) % Immature Gran % (Auto) 0.3 (0.00-0.4) % Nucleat RBC Rel Count 0.0 (0.00-0.1) % Eos # (Auto) 0.07 (0-0.5) x10^3/uL Immature Gran # (Auto) 0.02 (0.00-0.03) x10^3u/L Absolute Lymphs (auto) 1.24 (1.0-4.6) x10^3/uL Absolute Monos (auto) 0.52 (0.0-1.3) x10^3/uL Absolute Nucleated RBC 0.00 (0.00-0.01) x10^3u/L Lymphocytes % 15.8 L (24.0-44.0) % Monocytes % 6.6 (0.0-12.0) % Eosinophils % 0.9 (0.00-5.0) % Basophils % 0.4 (0.0-0.4) % Absolute Granulocytes 5.95 (1.4-6.9) x10^3/uL Basophils # 0.03 (0-0.4) x10^3/uL APTT (25.1-36.5) SECONDS Sodium 138 (137-145) mmol/L Potassium 4.2 (3.5-5.1) mmol/L Chloride 104 (98-107) mmol/L Carbon Dioxide 22 (22-30) mmol/L Anion Gap 15.8 H (5-15) MEQ/L BUN 20 H (7-17) mg/dL Creatinine 1.99 H (0.52-1.04) mg/dL Estimated GFR 26.1 ML/MIN Glucose 166 H (74-106) mg/dL Lactic Acid 2.0 (0.4-2.0) Calcium 9.0 (8.4-10.2) mg/dL Magnesium (1.6-2.3) mg/dL Total Bilirubin 1.50 H (0.2-1.3) mg/dL AST 38 H (14-36) U/L ALT 31 (0-35) U/L Alkaline Phosphatase 109 (38-126) U/L Troponin I (0.000-0.034) ng/mL NT-Pro-B Natriuret Pep (<300) pg/mL Serum Total Protein 7.9 (6.3-8.2) g/dL Albumin 4.3 (3.5-5.0) g/dL Urine Color (Yellow) Urine Appearance (Clear) Urine pH (4.6-8.0) Ur Specific [place] (1.005-1.030) Urine Protein (Negative) Urine Glucose (UA) (Negative) mg/dL Urine Ketones (Negative) Urine Blood (Negative) Urine Nitrite (Negative) Urine Bilirubin (Negative) Urine Urobilinogen (0.2) mg/dL Ur Leukocyte Esterase (Negative) U Hyaline Cast (Auto) (0-2) /LPF Urine Microscopic RBC (0-5) /HPF Urine Microscopic WBC (0-5) /HPF Ur Epithelial Cells (None Seen) /HPF Urine Bacteria (None Seen) /HPF Urine Culture Reflexed (NO) Influenza Type A Ag (NEGATIVE) Influenza Type B Ag (NEGATIVE) RSV (PCR) (NEGATIVE) SARS-CoV-2 (PCR) (NEGATIVE) 03/19/23 03/19/23 03/19/23 Range/Units 11:58 11:58 11:58 WBC (4.0-10.5) x10^3/uL RBC (4.1-5.4) x10^6/uL Hgb (12.0-16.0) g/dL Hct (35-47) % MCV (78-100) fL MCH (26-32) pg MCHC (32-36) g/dL RDW (11.5-14.0) % Plt Count (150-450) x10^3/uL MPV (7.5-11.0) fL Gran % (36.0-66.0) % Immature Gran % (Auto) (0.00-0.4) % Nucleat RBC Rel Count (0.00-0.1) % Eos # (Auto) (0-0.5) x10^3/uL Immature Gran # (Auto) (0.00-0.03) x10^3u/L Absolute Lymphs (auto) (1.0-4.6) x10^3/uL Absolute Monos (auto) (0.0-1.3) x10^3/uL Absolute Nucleated RBC (0.00-0.01) x10^3u/L Lymphocytes % (24.0-44.0) % Monocytes % (0.0-12.0) % Eosinophils % (0.00-5.0) % Basophils % (0.0-0.4) % Absolute Granulocytes (1.4-6.9) x10^3/uL Basophils # (0-0.4) x10^3/uL APTT (25.1-36.5) SECONDS Sodium (137-145) mmol/L Potassium (3.5-5.1) mmol/L Chloride (98-107) mmol/L Carbon Dioxide (22-30) mmol/L Anion Gap (5-15) MEQ/L BUN (7-17) mg/dL Creatinine (0.52-1.04) mg/dL Estimated GFR ML/MIN Glucose (74-106) mg/dL Lactic Acid (0.4-2.0) Calcium (8.4-10.2) mg/dL Magnesium 2.1 (1.6-2.3) mg/dL Total Bilirubin (0.2-1.3) mg/dL AST (14-36) U/L ALT (0-35) U/L Alkaline Phosphatase (38-126) U/L Troponin I 0.141 H* (0.000-0.034) ng/mL NT-Pro-B Natriuret Pep 527 (<300) pg/mL Serum Total Protein (6.3-8.2) g/dL Albumin (3.5-5.0) g/dL Urine Color (Yellow) Urine Appearance (Clear) Urine pH (4.6-8.0) Ur Specific [place] (1.005-1.030) Urine Protein (Negative) Urine Glucose (UA) (Negative) mg/dL Urine Ketones (Negative) Urine Blood (Negative) Urine Nitrite (Negative) Urine Bilirubin (Negative) Urine Urobilinogen (0.2) mg/dL Ur Leukocyte Esterase (Negative) U Hyaline Cast (Auto) (0-2) /LPF Urine Microscopic RBC (0-5) /HPF Urine Microscopic WBC (0-5) /HPF Ur Epithelial Cells (None Seen) /HPF Urine Bacteria (None Seen) /HPF Urine Culture Reflexed (NO) Influenza Type A Ag (NEGATIVE) Influenza Type B Ag (NEGATIVE) RSV (PCR) (NEGATIVE) SARS-CoV-2 (PCR) (NEGATIVE) 03/19/23 03/19/23 03/19/23 Range/Units 12:05 14:16 15:34 WBC (4.0-10.5) x10^3/uL RBC (4.1-5.4) x10^6/uL Hgb (12.0-16.0) g/dL Hct (35-47) % MCV (78-100) fL MCH (26-32) pg MCHC (32-36) g/dL RDW (11.5-14.0) % Plt Count (150-450) x10^3/uL MPV (7.5-11.0) fL Gran % (36.0-66.0) % Immature Gran % (Auto) (0.00-0.4) % Nucleat RBC Rel Count (0.00-0.1) % Eos # (Auto) (0-0.5) x10^3/uL Immature Gran # (Auto) (0.00-0.03) x10^3u/L Absolute Lymphs (auto) (1.0-4.6) x10^3/uL Absolute Monos (auto) (0.0-1.3) x10^3/uL Absolute Nucleated RBC (0.00-0.01) x10^3u/L Lymphocytes % (24.0-44.0) % Monocytes % (0.0-12.0) % Eosinophils % (0.00-5.0) % Basophils % (0.0-0.4) % Absolute Granulocytes (1.4-6.9) x10^3/uL Basophils # (0-0.4) x10^3/uL APTT 28.1 (25.1-36.5) SECONDS Sodium (137-145) mmol/L Potassium (3.5-5.1) mmol/L Chloride (98-107) mmol/L Carbon Dioxide (22-30) mmol/L Anion Gap (5-15) MEQ/L BUN (7-17) mg/dL Creatinine (0.52-1.04) mg/dL Estimated GFR ML/MIN Glucose (74-106) mg/dL Lactic Acid (0.4-2.0) Calcium (8.4-10.2) mg/dL Magnesium (1.6-2.3) mg/dL Total Bilirubin (0.2-1.3) mg/dL AST (14-36) U/L ALT (0-35) U/L Alkaline Phosphatase (38-126) U/L Troponin I 0.094 H* (0.000-0.034) ng/mL NT-Pro-B Natriuret Pep (<300) pg/mL Serum Total Protein (6.3-8.2) g/dL Albumin (3.5-5.0) g/dL Urine Color (Yellow) Urine Appearance (Clear) Urine pH (4.6-8.0) Ur Specific [place] (1.005-1.030) Urine Protein (Negative) Urine Glucose (UA) (Negative) mg/dL Urine Ketones (Negative) Urine Blood (Negative) Urine Nitrite (Negative) Urine Bilirubin (Negative) Urine Urobilinogen (0.2) mg/dL Ur Leukocyte Esterase (Negative) U Hyaline Cast (Auto) (0-2) /LPF Urine Microscopic RBC (0-5) /HPF Urine Microscopic WBC (0-5) /HPF Ur Epithelial Cells (None Seen) /HPF Urine Bacteria (None Seen) /HPF Urine Culture Reflexed (NO) Influenza Type A Ag NEGATIVE (NEGATIVE) Influenza Type B Ag NEGATIVE (NEGATIVE) RSV (PCR) NEGATIVE (NEGATIVE) SARS-CoV-2 (PCR) NEGATIVE (NEGATIVE) 03/19/23 03/19/23 Range/Units 16:48 19:40 WBC (4.0-10.5) x10^3/uL RBC (4.1-5.4) x10^6/uL Hgb (12.0-16.0) g/dL Hct (35-47) % MCV (78-100) fL MCH (26-32) pg MCHC (32-36) g/dL RDW (11.5-14.0) % Plt Count (150-450) x10^3/uL MPV (7.5-11.0) fL Gran % (36.0-66.0) % Immature Gran % (Auto) (0.00-0.4) % Nucleat RBC Rel Count (0.00-0.1) % Eos # (Auto) (0-0.5) x10^3/uL Immature Gran # (Auto) (0.00-0.03) x10^3u/L Absolute Lymphs (auto) (1.0-4.6) x10^3/uL Absolute Monos (auto) (0.0-1.3) x10^3/uL Absolute Nucleated RBC (0.00-0.01) x10^3u/L Lymphocytes % (24.0-44.0) % Monocytes % (0.0-12.0) % Eosinophils % (0.00-5.0) % Basophils % (0.0-0.4) % Absolute Granulocytes (1.4-6.9) x10^3/uL Basophils # (0-0.4) x10^3/uL APTT (25.1-36.5) SECONDS Sodium (137-145) mmol/L Potassium (3.5-5.1) mmol/L Chloride (98-107) mmol/L Carbon Dioxide (22-30) mmol/L Anion Gap (5-15) MEQ/L BUN (7-17) mg/dL Creatinine (0.52-1.04) mg/dL Estimated GFR ML/MIN Glucose (74-106) mg/dL Lactic Acid (0.4-2.0) Calcium (8.4-10.2) mg/dL Magnesium (1.6-2.3) mg/dL Total Bilirubin (0.2-1.3) mg/dL AST (14-36) U/L ALT (0-35) U/L Alkaline Phosphatase (38-126) U/L Troponin I 0.068 H* (0.000-0.034) ng/mL NT-Pro-B Natriuret Pep (<300) pg/mL Serum Total Protein (6.3-8.2) g/dL Albumin (3.5-5.0) g/dL Urine Color Yellow (Yellow) Urine Appearance Turbid A (Clear) Urine pH 6.0 (4.6-8.0) Ur Specific [place] 1.015 (1.005-1.030) Urine Protein 30 (Negative) Urine Glucose (UA) Negative (Negative) mg/dL Urine Ketones Trace A (Negative) Urine Blood Negative (Negative) Urine Nitrite Negative (Negative) Urine Bilirubin Negative (Negative) Urine Urobilinogen 1.0 A (0.2) mg/dL Ur Leukocyte Esterase Large A (Negative) U Hyaline Cast (Auto) None Seen (0-2) /LPF Urine Microscopic RBC 0-2 (0-5) /HPF Urine Microscopic WBC 21-50 A (0-5) /HPF Ur Epithelial Cells Few (None Seen) /HPF Urine Bacteria Moderate A (None Seen) /HPF Urine Culture Reflexed YES (NO) Influenza Type A Ag (NEGATIVE) Influenza Type B Ag (NEGATIVE) RSV (PCR) (NEGATIVE) SARS-CoV-2 (PCR) (NEGATIVE) - Radiology Impressions Radiology Exams & Impressions: Radiology Procedures Category Date Time Status CHEST 1 VIEW (PORTABLE) Stat Exams 03/19/23 11:19 Taken - Other Procedures and Tests Respiratory Therapy 03/19/23 11:49 Respiratory Therapy Assessment DAILY 03/19/23 13:43 Oxygen Nasal Cannula 2 lpm HOLLY Encounter - HOLLY Encounter Attestation HOLLY Encounter Attestation: "IhJUAN Augustin andfadiavediscussed pertinent aspects of their care with Alina Steve agree with the history, physical exam (any modifications based on my personal exam will be noted below), assessment, and plan as outlined in original note. Please see immediately below for my summary of findings and additional assessment and plan along with any meaningful corrections/explanations to the Subjective/Objective portions of the HOLLY note will be noted." My portion of the encounter took place via telemedicine. -Acute bronchitis with hypoxia. Patient reports remote history of smoking as a teenager and no chronic lung disease. No indication for antibiotics. Continue nebs, oxygen support. Borderline positive trops, in the absence of chest pain, trending down.
[2023-03-19] MEDS ORDERED: Robitussin 100 MG/5 ML PO PRN (14:21)
[2023-03-19] MEDS ORDERED: Tessalon Perles 100 MG PO PRN (14:22)
[2023-03-19] MEDS ORDERED: Compazine 10 MG/2 ML IV PRN (14:24)
[2023-03-19] MEDS ORDERED: VITAMIN D2 PO PRN (15:15)
[2023-03-19 17:11] LABS: Appearance Turbid (Clear); Bacteria Moderate /HPF (None Seen); Bilirubin Negative (Negative); Blood Negative (Negative); Epithelial Cells Few /HPF (None Seen); Glucose, Urine Negative (Negative); Ketones Trace (Negative); Leukocyte Esterase Large (Negative); Nitrite Negative (Negative); Protein,Urine Dip 30 (Negative); RBC 0-2 /HPF (0-5); Specific Gravity 1.015 (1.005-1.030); WBC 21-50 /HPF (0-5)
[2023-03-19 17:12] LABS: ADD URINE CULTURE? YES (NO); Hyaline Casts None Seen /LPF (0-2)
[2023-03-19] MEDS: DUONEB 0.5-3 MG/3 ml Neb IH SCH (20:13)
--- NOTE | 2023-03-19 21:00 | XRAY ---
Indication: Cough and short of breath. Comparison: December 02, 2021 Portable chest remains inflated and clear. Heart not enlarged. Bony thorax intact again with mild degenerative changes. Impression: Continued nonacute chest.
[2023-03-19] MEDS: HEPARIN 5000 UNITS/0.5 ML (HIGH RISK MED) SQ SCH (23:49)
[2023-03-20] MEDS: DUONEB 0.5-3 MG/3 ml Neb IH SCH ×2 (01:54→05:54)
--- NOTE | 2023-03-20 05:20 | PCM.NOTE ---
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 Patient was hypoxic on presentation with sats at 87/88%, improved with 2l of oxygen to 96%. RA is her baseline. CXR with no cardiopulmonary processes. Initial lab findings remarkable for elevated trops which are downtrending 0.068<0.094<0.141 (and possibly se condary to renal cause/ pt with one kidney), elevated creat at 1.99 (baseline around 1.8) and UA suspicious for UTI. EKG with no acute changes, ST elevations/deviations. Patient is admitted with acute bronchitis, no antiobiotic needed for coverage, UTI, culture pending, rocephin will empiracally treat for now. OBJECTIVE DATA Vital Signs: Vital Signs - 24 hr Temp Pulse Resp BP BP Pulse Ox 03/20/23 00:00 70 22 99 03/19/23 20:15 81 18 93 L 03/19/23 20:00 97.6 F 70 20 162/82 93 L 03/19/23 15:02 77 20 100 03/19/23 13:58 97.4 F 94 H 16 173/78 93 L 03/19/23 13:26 92 L 03/19/23 13:16 78 14 142/71 94 L 03/19/23 13:15 86 18 95 03/19/23 13:10 86 12 95 03/19/23 13:00 86 14 94 L 03/19/23 12:50 80 3 L 94 L 03/19/23 12:40 87 11 L 94 L 03/19/23 12:33 85 16 94 L 03/19/23 12:01 78/59 92 L 03/19/23 11:50 88 20 94 L 03/19/23 11:31 126/70 94 L 03/19/23 11:00 105/78 92 L 03/19/23 10:34 20 97 Oxygen-Last 24 hours Oxygen Flowrate (L/min)-RT 2 Pain Assessment - Last Documented Pain Intensity 0 Intake and Output: Intake & Output 03/17/23 03/18/23 03/19/23 03/20/23 11:59 11:59 11:59 11:59 Intake Total 120 Balance 120 Weight 90.718 kg 96 kg Lab Results: Lab Results-Last 24 Hours 03/19/23 03/19/23 03/19/23 Range/Units 11:12 11:12 11:55 WBC 7.8 (4.0-10.5) x10^3/uL RBC 5.40 (4.1-5.4) x10^6/uL Hgb 15.3 (12.0-16.0) g/dL Hct 46.7 (35-47) % MCV 86.5 (78-100) fL MCH 28.3 (26-32) pg MCHC 32.8 (32-36) g/dL RDW 13.2 (11.5-14.0) % Plt Count 241 (150-450) x10^3/uL MPV 10.6 (7.5-11.0) fL Gran % 76.0 H (36.0-66.0) % Immature Gran % (Auto) 0.3 (0.00-0.4) % Nucleat RBC Rel Count 0.0 (0.00-0.1) % Eos # (Auto) 0.07 (0-0.5) x10^3/uL Immature Gran # (Auto) 0.02 (0.00-0.03) x10^3u/L Absolute Lymphs (auto) 1.24 (1.0-4.6) x10^3/uL Absolute Monos (auto) 0.52 (0.0-1.3) x10^3/uL Absolute Nucleated RBC 0.00 (0.00-0.01) x10^3u/L Lymphocytes % 15.8 L (24.0-44.0) % Monocytes % 6.6 (0.0-12.0) % Eosinophils % 0.9 (0.00-5.0) % Basophils % 0.4 (0.0-0.4) % Absolute Granulocytes 5.95 (1.4-6.9) x10^3/uL Basophils # 0.03 (0-0.4) x10^3/uL APTT (25.1-36.5) SECONDS Sodium 138 (137-145) mmol/L Potassium 4.2 (3.5-5.1) mmol/L Chloride 104 (98-107) mmol/L Carbon Dioxide 22 (22-30) mmol/L Anion Gap 15.8 H (5-15) MEQ/L BUN 20 H (7-17) mg/dL Creatinine 1.99 H (0.52-1.04) mg/dL Estimated GFR 26.1 ML/MIN Glucose 166 H (74-106) mg/dL Lactic Acid 2.0 (0.4-2.0) Calcium 9.0 (8.4-10.2) mg/dL Magnesium (1.6-2.3) mg/dL Total Bilirubin 1.50 H (0.2-1.3) mg/dL AST 38 H (14-36) U/L ALT 31 (0-35) U/L Alkaline Phosphatase 109 (38-126) U/L Troponin I (0.000-0.034) ng/mL NT-Pro-B Natriuret Pep (<300) pg/mL Serum Total Protein 7.9 (6.3-8.2) g/dL Albumin 4.3 (3.5-5.0) g/dL Urine Color (Yellow) Urine Appearance (Clear) Urine pH (4.6-8.0) Ur Specific [place] (1.005-1.030) Urine Protein (Negative) Urine Glucose (UA) (Negative) mg/dL Urine Ketones (Negative) Urine Blood (Negative) Urine Nitrite (Negative) Urine Bilirubin (Negative) Urine Urobilinogen (0.2) mg/dL Ur Leukocyte Esterase (Negative) U Hyaline Cast (Auto) (0-2) /LPF Urine Microscopic RBC (0-5) /HPF Urine Microscopic WBC (0-5) /HPF Ur Epithelial Cells (None Seen) /HPF Urine Bacteria (None Seen) /HPF Urine Culture Reflexed (NO) Influenza Type A Ag (NEGATIVE) Influenza Type B Ag (NEGATIVE) RSV (PCR) (NEGATIVE) SARS-CoV-2 (PCR) (NEGATIVE) 03/19/23 03/19/23 03/19/23 Range/Units 11:58 11:58 11:58 WBC (4.0-10.5) x10^3/uL RBC (4.1-5.4) x10^6/uL Hgb (12.0-16.0) g/dL Hct (35-47) % MCV (78-100) fL MCH (26-32) pg MCHC (32-36) g/dL RDW (11.5-14.0) % Plt Count (150-450) x10^3/uL MPV (7.5-11.0) fL Gran % (36.0-66.0) % Immature Gran % (Auto) (0.00-0.4) % Nucleat RBC Rel Count (0.00-0.1) % Eos # (Auto) (0-0.5) x10^3/uL Immature Gran # (Auto) (0.00-0.03) x10^3u/L Absolute Lymphs (auto) (1.0-4.6) x10^3/uL Absolute Monos (auto) (0.0-1.3) x10^3/uL Absolute Nucleated RBC (0.00-0.01) x10^3u/L Lymphocytes % (24.0-44.0) % Monocytes % (0.0-12.0) % Eosinophils % (0.00-5.0) % Basophils % (0.0-0.4) % Absolute Granulocytes (1.4-6.9) x10^3/uL Basophils # (0-0.4) x10^3/uL APTT (25.1-36.5) SECONDS Sodium (137-145) mmol/L Potassium (3.5-5.1) mmol/L Chloride (98-107) mmol/L Carbon Dioxide (22-30) mmol/L Anion Gap (5-15) MEQ/L BUN (7-17) mg/dL Creatinine (0.52-1.04) mg/dL Estimated GFR ML/MIN Glucose (74-106) mg/dL Lactic Acid (0.4-2.0) Calcium (8.4-10.2) mg/dL Magnesium 2.1 (1.6-2.3) mg/dL Total Bilirubin (0.2-1.3) mg/dL AST (14-36) U/L ALT (0-35) U/L Alkaline Phosphatase (38-126) U/L Troponin I 0.141 H* (0.000-0.034) ng/mL NT-Pro-B Natriuret Pep 527 (<300) pg/mL Serum Total Protein (6.3-8.2) g/dL Albumin (3.5-5.0) g/dL Urine Color (Yellow) Urine Appearance (Clear) Urine pH (4.6-8.0) Ur Specific [place] (1.005-1.030) Urine Protein (Negative) Urine Glucose (UA) (Negative) mg/dL Urine Ketones (Negative) Urine Blood (Negative) Urine Nitrite (Negative) Urine Bilirubin (Negative) Urine Urobilinogen (0.2) mg/dL Ur Leukocyte Esterase (Negative) U Hyaline Cast (Auto) (0-2) /LPF Urine Microscopic RBC (0-5) /HPF Urine Microscopic WBC (0-5) /HPF Ur Epithelial Cells (None Seen) /HPF Urine Bacteria (None Seen) /HPF Urine Culture Reflexed (NO) Influenza Type A Ag (NEGATIVE) Influenza Type B Ag (NEGATIVE) RSV (PCR) (NEGATIVE) SARS-CoV-2 (PCR) (NEGATIVE) 03/19/23 03/19/23 03/19/23 Range/Units 12:05 14:16 15:34 WBC (4.0-10.5) x10^3/uL RBC (4.1-5.4) x10^6/uL Hgb (12.0-16.0) g/dL Hct (35-47) % MCV (78-100) fL MCH (26-32) pg MCHC (32-36) g/dL RDW (11.5-14.0) % Plt Count (150-450) x10^3/uL MPV (7.5-11.0) fL Gran % (36.0-66.0) % Immature Gran % (Auto) (0.00-0.4) % Nucleat RBC Rel Count (0.00-0.1) % Eos # (Auto) (0-0.5) x10^3/uL Immature Gran # (Auto) (0.00-0.03) x10^3u/L Absolute Lymphs (auto) (1.0-4.6) x10^3/uL Absolute Monos (auto) (0.0-1.3) x10^3/uL Absolute Nucleated RBC (0.00-0.01) x10^3u/L Lymphocytes % (24.0-44.0) % Monocytes % (0.0-12.0) % Eosinophils % (0.00-5.0) % Basophils % (0.0-0.4) % Absolute Granulocytes (1.4-6.9) x10^3/uL Basophils # (0-0.4) x10^3/uL APTT 28.1 (25.1-36.5) SECONDS Sodium (137-145) mmol/L Potassium (3.5-5.1) mmol/L Chloride (98-107) mmol/L Carbon Dioxide (22-30) mmol/L Anion Gap (5-15) MEQ/L BUN (7-17) mg/dL Creatinine (0.52-1.04) mg/dL Estimated GFR ML/MIN Glucose (74-106) mg/dL Lactic Acid (0.4-2.0) Calcium (8.4-10.2) mg/dL Magnesium (1.6-2.3) mg/dL Total Bilirubin (0.2-1.3) mg/dL AST (14-36) U/L ALT (0-35) U/L Alkaline Phosphatase (38-126) U/L Troponin I 0.094 H* (0.000-0.034) ng/mL NT-Pro-B Natriuret Pep (<300) pg/mL Serum Total Protein (6.3-8.2) g/dL Albumin (3.5-5.0) g/dL Urine Color (Yellow) Urine Appearance (Clear) Urine pH (4.6-8.0) Ur Specific [place] (1.005-1.030) Urine Protein (Negative) Urine Glucose (UA) (Negative) mg/dL Urine Ketones (Negative) Urine Blood (Negative) Urine Nitrite (Negative) Urine Bilirubin (Negative) Urine Urobilinogen (0.2) mg/dL Ur Leukocyte Esterase (Negative) U Hyaline Cast (Auto) (0-2) /LPF Urine Microscopic RBC (0-5) /HPF Urine Microscopic WBC (0-5) /HPF Ur Epithelial Cells (None Seen) /HPF Urine Bacteria (None Seen) /HPF Urine Culture Reflexed (NO) Influenza Type A Ag NEGATIVE (NEGATIVE) Influenza Type B Ag NEGATIVE (NEGATIVE) RSV (PCR) NEGATIVE (NEGATIVE) SARS-CoV-2 (PCR) NEGATIVE (NEGATIVE) 03/19/23 03/19/23 Range/Units 16:48 19:40 WBC (4.0-10.5) x10^3/uL RBC (4.1-5.4) x10^6/uL Hgb (12.0-16.0) g/dL Hct (35-47) % MCV (78-100) fL MCH (26-32) pg MCHC (32-36) g/dL RDW (11.5-14.0) % Plt Count (150-450) x10^3/uL MPV (7.5-11.0) fL Gran % (36.0-66.0) % Immature Gran % (Auto) (0.00-0.4) % Nucleat RBC Rel Count (0.00-0.1) % Eos # (Auto) (0-0.5) x10^3/uL Immature Gran # (Auto) (0.00-0.03) x10^3u/L Absolute Lymphs (auto) (1.0-4.6) x10^3/uL Absolute Monos (auto) (0.0-1.3) x10^3/uL Absolute Nucleated RBC (0.00-0.01) x10^3u/L Lymphocytes % (24.0-44.0) % Monocytes % (0.0-12.0) % Eosinophils % (0.00-5.0) % Basophils % (0.0-0.4) % Absolute Granulocytes (1.4-6.9) x10^3/uL Basophils # (0-0.4) x10^3/uL APTT (25.1-36.5) SECONDS Sodium (137-145) mmol/L Potassium (3.5-5.1) mmol/L Chloride (98-107) mmol/L Carbon Dioxide (22-30) mmol/L Anion Gap (5-15) MEQ/L BUN (7-17) mg/dL Creatinine (0.52-1.04) mg/dL Estimated GFR ML/MIN Glucose (74-106) mg/dL Lactic Acid (0.4-2.0) Calcium (8.4-10.2) mg/dL Magnesium (1.6-2.3) mg/dL Total Bilirubin (0.2-1.3) mg/dL AST (14-36) U/L ALT (0-35) U/L Alkaline Phosphatase (38-126) U/L Troponin I 0.068 H* (0.000-0.034) ng/mL NT-Pro-B Natriuret Pep (<300) pg/mL Serum Total Protein (6.3-8.2) g/dL Albumin (3.5-5.0) g/dL Urine Color Yellow (Yellow) Urine Appearance Turbid A (Clear) Urine pH 6.0 (4.6-8.0) Ur Specific [place] 1.015 (1.005-1.030) Urine Protein 30 (Negative) Urine Glucose (UA) Negative (Negative) mg/dL Urine Ketones Trace A (Negative) Urine Blood Negative (Negative) Urine Nitrite Negative (Negative) Urine Bilirubin Negative (Negative) Urine Urobilinogen 1.0 A (0.2) mg/dL Ur Leukocyte Esterase Large A (Negative) U Hyaline Cast (Auto) None Seen (0-2) /LPF Urine Microscopic RBC 0-2 (0-5) /HPF Urine Microscopic WBC 21-50 A (0-5) /HPF Ur Epithelial Cells Few (None Seen) /HPF Urine Bacteria Moderate A (None Seen) /HPF Urine Culture Reflexed YES (NO) Influenza Type A Ag (NEGATIVE) Influenza Type B Ag (NEGATIVE) RSV (PCR) (NEGATIVE) SARS-CoV-2 (PCR) (NEGATIVE) Radiology Exams: Radiology Procedures Category Date Time Status CHEST 1 VIEW (PORTABLE) Stat Exams 03/19/23 11:19 Completed Assessment/Plan (1) Acute bronchitis Current Visit: Yes Status: Acute Assessment & Plan: - rocephin and zithromax gave in ER- continue zithromax - Duoneb gave in ER- cont. - Chest XR pending - 2LNC 92%- Baseline is RA - COVID/Flu/RSV negative - RT eval and treat - Guaifensin, benzonatate Code(s): J20.9 - ACUTE BRONCHITIS, UNSPECIFIED (2) Acute on chronic renal failure Current Visit: Yes Status: Acute Assessment & Plan: - Baseline creat 1.5 - Creat. 1.99 - encourage oral fluid intake - Hold thiazide diuretic- Indapamide - UA with culture pending Code(s): N17.9 - ACUTE KIDNEY FAILURE, UNSPECIFIED; N18.9 - CHRONIC KIDNEY DISEASE, UNSPECIFIED (3) Elevated troponin Current Visit: Yes Status: Acute Assessment & Plan: - Trop 0.141- trend - EKG reviewed in ER and non-concerning - Refused ASA in ER - Denies CP - may be 2:2 STEFANO - tele - heart healthy diet. Code(s): R79.89 - OTHER SPECIFIED ABNORMAL FINDINGS OF BLOOD CHEMISTRY (4) HTN (hypertension) Current Visit: Yes Status: Acute Assessment & Plan: - BP stable - hold Indapamide - Continue amlodipine Code(s): I10 - ESSENTIAL (PRIMARY) HYPERTENSION (5) Obesity (BMI 30.0-34.9) Current Visit: Yes Status: Acute Assessment & Plan: - advised diet and exercise control #UTI- -UA suspicious of uti, will start rocephin empirically, follow culture VTE: Heparin D/c plan: 1-2 days Next of kin: Mayra Patricia [phone] Code status: Full Code(s): E66.9 - OBESITY, UNSPECIFIED <ERICHERNANDOJARON PEREZ - Last Filed: 03/19/23 20:55> Code(s): J20.9 - ACUTE BRONCHITIS, UNSPECIFIED (2) Acute on chronic renal failure Current Visit: Yes Status: Acute Code(s): N17.9 - ACUTE KIDNEY FAILURE, UNSPECIFIED; N18.9 - CHRONIC KIDNEY DISEASE, UNSPECIFIED (3) Elevated troponin Current Visit: Yes Status: Acute Code(s): R79.89 - OTHER SPECIFIED ABNORMAL FINDINGS OF BLOOD CHEMISTRY (4) HTN (hypertension) Current Visit: Yes Status: Acute Code(s): I10 - ESSENTIAL (PRIMARY) HYPERTENSION (5) Obesity (BMI 30.0-34.9) Current Visit: Yes Status: Acute Code(s): E66.9 - OBESITY, UNSPECIFIED (6) UTI (urinary tract infection) Current Visit: Yes Status: Acute Code(s): N39.0 - URINARY TRACT INFECTION, SITE NOT SPECIFIED
[2023-03-20 05:44] LABS: Hematocrit 41.1 % (35-47); Hemoglobin 13.5 g/dL (12.0-16.0); Mean Cell Volume 85.8 fL (78-100); Mean Corpuscular Hemoglobin 28.2 pg (26-32); Mean Corpuscular Hgb Concent. 32.8 g/dL (32-36); Mean Platelet Volume 10.5 fL (7.5-11.0); Platelet Count 232 x10^3/uL (150-450); Red Blood Count 4.79 x10^6/uL (4.1-5.4); Red Cell Distribution Width 13.5 % (11.5-14.0); White Blood Count 7.6 x10^3/uL (4.0-10.5)
[2023-03-20 06:03] LABS: ALBUMIN 3.8 g/dL (3.5-5.0); ANION GAP 11.6 MEQ/L (5-15); BILIRUBIN,TOTAL 1.1 mg/dL (0.2-1.3); Calcium 8.3 mg/dL (8.4-10.2); Creatinine 1 1.85 mg/dL (0.52-1.04); EST GLOMERULAR FILTRATION RATE 28.4 ML/MIN; Potassium 3.6 mmol/L (3.5-5.1); Total Protein 7.1 g/dL (6.3-8.2)
[2023-03-20 07:07] VITALS: BP 128/58; PULSE 79; RESP 16; TEMP 97; O2SAT 96
[2023-03-20] MEDS: HEPARIN 5000 UNITS/0.5 ML (HIGH RISK MED) SQ SCH (09:59)
[2023-03-20] MEDS ORDERED: NORVASC 5 MG PO SCH (10:00)
[2023-03-20] MEDS ORDERED: ROCEPHIN 1 Gm-D5w 50 ml Bag** 1 G/50 ML IVPB IV SCH (10:00)
--- NOTE | 2023-03-20 10:55 | PCM.DS ---
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 Patient was hypoxic on presentation with sats at 87/88% which improved with the initiation of oxygen at 2L NC. RA is her baseline. CXR with no acute cardiopulmonary etiologies. Initial lab findings were remarkable for elevation of troponins, which have since downtrended, no c/o of CP. Repeat EKG with no acute changes, ST elevations/deviations. This was most likely due to a renal cause rather than cardio. UA suspicious for UTI, she will go home on cefdinir, will track culture and update her if abx need changed. She was admitted with acute bronchitis with no need for abx coverage. She is back at her baseline oxygenation of RA with spo2 @ 100%. She is stable and requesting discharge. Advised follow up with PCP as OP. Discharge Note New Diagnosis: Acute bronchitis/UTI New Medications: Cefdinir Follow Up: PCP Results pending: Urine culture Latest Assessment & Plan (1) Acute bronchitis Current Visit: Yes Status: Acute Assessment & Plan: - rocephin and zithromax gave in ER- continue zithromax - Duoneb gave in ER- cont. - Chest XR pending - 2LNC 92%- Baseline is RA - COVID/Flu/RSV negative - RT eval and treat - Guaifensin, benzonatate Code(s): J20.9 - ACUTE BRONCHITIS, UNSPECIFIED (2) Acute on chronic renal failure Current Visit: Yes Status: Acute Assessment & Plan: - Baseline creat 1.5 - Creat. 1.99 - encourage oral fluid intake - Hold thiazide diuretic- Indapamide - UA with culture pending Code(s): N17.9 - ACUTE KIDNEY FAILURE, UNSPECIFIED; N18.9 - CHRONIC KIDNEY DISEASE, UNSPECIFIED (3) Elevated troponin Current Visit: Yes Status: Acute Assessment & Plan: - Trop 0.141- trend - EKG reviewed in ER and non-concerning - Refused ASA in ER - Denies CP - may be 2:2 STEFANO - tele - heart healthy diet. Code(s): R79.89 - OTHER SPECIFIED ABNORMAL FINDINGS OF BLOOD CHEMISTRY (4) HTN (hypertension) Current Visit: Yes Status: Acute Assessment & Plan: - BP stable - hold Indapamide - Continue amlodipine Code(s): I10 - ESSENTIAL (PRIMARY) HYPERTENSION (5) Obesity (BMI 30.0-34.9) Current Visit: Yes Status: Acute Assessment & Plan: - advised diet and exercise control VTE: Heparin D/c plan: 1-2 days Next of kin: Mayra Gomez [phone] Code status: Full Code(s): E66.9 - OBESITY, UNSPECIFIED I spent 35 minutes [id number] with the patient on the day of discharge performing discharge exam, discussing hospital stay and discharge instructions with patient and caregivers, preparation of discharge records, prescriptions & referral forms and addressing any questions/concerns the patient had as ryan ivan above. - Vitals & Intake/Output Vital Signs: Vital Signs Temperature 97 F 03/20/23 07:06 Pulse Rate 79 03/20/23 07:06 Respiratory Rate 16 03/20/23 07:06 Blood Pressure 128/58 03/20/23 07:06 O2 Sat by Pulse Oximetry 96 03/20/23 07:06 Intake & Output: Intake & Output 03/17/23 03/18/23 03/19/23 03/20/23 11:59 11:59 11:59 11:59 Intake Total 480 Balance 480 Weight 90.718 kg 96 kg - Lab Result Diagrams: 03/20/23 05:40 03/20/23 05:40 Lab Results-Last 24 Hrs: Lab Results-Last 24 Hours 03/19/23 03/19/23 03/19/23 Range/Units 11:12 11:12 11:55 WBC 7.8 (4.0-10.5) x10^3/uL RBC 5.40 (4.1-5.4) x10^6/uL Hgb 15.3 (12.0-16.0) g/dL Hct 46.7 (35-47) % MCV 86.5 (78-100) fL MCH 28.3 (26-32) pg MCHC 32.8 (32-36) g/dL RDW 13.2 (11.5-14.0) % Plt Count 241 (150-450) x10^3/uL MPV 10.6 (7.5-11.0) fL Gran % 76.0 H (36.0-66.0) % Immature Gran % (Auto) 0.3 (0.00-0.4) % Nucleat RBC Rel Count 0.0 (0.00-0.1) % Eos # (Auto) 0.07 (0-0.5) x10^3/uL Immature Gran # (Auto) 0.02 (0.00-0.03) x10^3u/L Absolute Lymphs (auto) 1.24 (1.0-4.6) x10^3/uL Absolute Monos (auto) 0.52 (0.0-1.3) x10^3/uL Absolute Nucleated RBC 0.00 (0.00-0.01) x10^3u/L Lymphocytes % 15.8 L (24.0-44.0) % Monocytes % 6.6 (0.0-12.0) % Eosinophils % 0.9 (0.00-5.0) % Basophils % 0.4 (0.0-0.4) % Absolute Granulocytes 5.95 (1.4-6.9) x10^3/uL Basophils # 0.03 (0-0.4) x10^3/uL APTT (25.1-36.5) SECONDS Sodium 138 (137-145) mmol/L Potassium 4.2 (3.5-5.1) mmol/L Chloride 104 (98-107) mmol/L Carbon Dioxide 22 (22-30) mmol/L Anion Gap 15.8 H (5-15) MEQ/L BUN 20 H (7-17) mg/dL Creatinine 1.99 H (0.52-1.04) mg/dL Estimated GFR 26.1 ML/MIN Glucose 166 H (74-106) mg/dL Lactic Acid 2.0 (0.4-2.0) Calcium 9.0 (8.4-10.2) mg/dL Magnesium (1.6-2.3) mg/dL Total Bilirubin 1.50 H (0.2-1.3) mg/dL AST 38 H (14-36) U/L ALT 31 (0-35) U/L Alkaline Phosphatase 109 (38-126) U/L Troponin I (0.000-0.034) ng/mL NT-Pro-B Natriuret Pep (<300) pg/mL Serum Total Protein 7.9 (6.3-8.2) g/dL Albumin 4.3 (3.5-5.0) g/dL Urine Color (Yellow) Urine Appearance (Clear) Urine pH (4.6-8.0) Ur Specific [place] (1.005-1.030) Urine Protein (Negative) Urine Glucose (UA) (Negative) mg/dL Urine Ketones (Negative) Urine Blood (Negative) Urine Nitrite (Negative) Urine Bilirubin (Negative) Urine Urobilinogen (0.2) mg/dL Ur Leukocyte Esterase (Negative) U Hyaline Cast (Auto) (0-2) /LPF Urine Microscopic RBC (0-5) /HPF Urine Microscopic WBC (0-5) /HPF Ur Epithelial Cells (None Seen) /HPF Urine Bacteria (None Seen) /HPF Urine Culture Reflexed (NO) Influenza Type A Ag (NEGATIVE) Influenza Type B Ag (NEGATIVE) RSV (PCR) (NEGATIVE) SARS-CoV-2 (PCR) (NEGATIVE) 03/19/23 03/19/23 03/19/23 Range/Units 11:58 11:58 11:58 WBC (4.0-10.5) x10^3/uL RBC (4.1-5.4) x10^6/uL Hgb (12.0-16.0) g/dL Hct (35-47) % MCV (78-100) fL MCH (26-32) pg MCHC (32-36) g/dL RDW (11.5-14.0) % Plt Count (150-450) x10^3/uL MPV (7.5-11.0) fL Gran % (36.0-66.0) % Immature Gran % (Auto) (0.00-0.4) % Nucleat RBC Rel Count (0.00-0.1) % Eos # (Auto) (0-0.5) x10^3/uL Immature Gran # (Auto) (0.00-0.03) x10^3u/L Absolute Lymphs (auto) (1.0-4.6) x10^3/uL Absolute Monos (auto) (0.0-1.3) x10^3/uL Absolute Nucleated RBC (0.00-0.01) x10^3u/L Lymphocytes % (24.0-44.0) % Monocytes % (0.0-12.0) % Eosinophils % (0.00-5.0) % Basophils % (0.0-0.4) % Absolute Granulocytes (1.4-6.9) x10^3/uL Basophils # (0-0.4) x10^3/uL APTT (25.1-36.5) SECONDS Sodium (137-145) mmol/L Potassium (3.5-5.1) mmol/L Chloride (98-107) mmol/L Carbon Dioxide (22-30) mmol/L Anion Gap (5-15) MEQ/L BUN (7-17) mg/dL Creatinine (0.52-1.04) mg/dL Estimated GFR ML/MIN Glucose (74-106) mg/dL Lactic Acid (0.4-2.0) Calcium (8.4-10.2) mg/dL Magnesium 2.1 (1.6-2.3) mg/dL Total Bilirubin (0.2-1.3) mg/dL AST (14-36) U/L ALT (0-35) U/L Alkaline Phosphatase (38-126) U/L Troponin I 0.141 H* (0.000-0.034) ng/mL NT-Pro-B Natriuret Pep 527 (<300) pg/mL Serum Total Protein (6.3-8.2) g/dL Albumin (3.5-5.0) g/dL Urine Color (Yellow) Urine Appearance (Clear) Urine pH (4.6-8.0) Ur Specific [place] (1.005-1.030) Urine Protein (Negative) Urine Glucose (UA) (Negative) mg/dL Urine Ketones (Negative) Urine Blood (Negative) Urine Nitrite (Negative) Urine Bilirubin (Negative) Urine Urobilinogen (0.2) mg/dL Ur Leukocyte Esterase (Negative) U Hyaline Cast (Auto) (0-2) /LPF Urine Microscopic RBC (0-5) /HPF Urine Microscopic WBC (0-5) /HPF Ur Epithelial Cells (None Seen) /HPF Urine Bacteria (None Seen) /HPF Urine Culture Reflexed (NO) Influenza Type A Ag (NEGATIVE) Influenza Type B Ag (NEGATIVE) RSV (PCR) (NEGATIVE) SARS-CoV-2 (PCR) (NEGATIVE) 03/19/23 03/19/23 03/19/23 Range/Units 12:05 14:16 15:34 WBC (4.0-10.5) x10^3/uL RBC (4.1-5.4) x10^6/uL Hgb (12.0-16.0) g/dL Hct (35-47) % MCV (78-100) fL MCH (26-32) pg MCHC (32-36) g/dL RDW (11.5-14.0) % Plt Count (150-450) x10^3/uL MPV (7.5-11.0) fL Gran % (36.0-66.0) % Immature Gran % (Auto) (0.00-0.4) % Nucleat RBC Rel Count (0.00-0.1) % Eos # (Auto) (0-0.5) x10^3/uL Immature Gran # (Auto) (0.00-0.03) x10^3u/L Absolute Lymphs (auto) (1.0-4.6) x10^3/uL Absolute Monos (auto) (0.0-1.3) x10^3/uL Absolute Nucleated RBC (0.00-0.01) x10^3u/L Lymphocytes % (24.0-44.0) % Monocytes % (0.0-12.0) % Eosinophils % (0.00-5.0) % Basophils % (0.0-0.4) % Absolute Granulocytes (1.4-6.9) x10^3/uL Basophils # (0-0.4) x10^3/uL APTT 28.1 (25.1-36.5) SECONDS Sodium (137-145) mmol/L Potassium (3.5-5.1) mmol/L Chloride (98-107) mmol/L Carbon Dioxide (22-30) mmol/L Anion Gap (5-15) MEQ/L BUN (7-17) mg/dL Creatinine (0.52-1.04) mg/dL Estimated GFR ML/MIN Glucose (74-106) mg/dL Lactic Acid (0.4-2.0) Calcium (8.4-10.2) mg/dL Magnesium (1.6-2.3) mg/dL Total Bilirubin (0.2-1.3) mg/dL AST (14-36) U/L ALT (0-35) U/L Alkaline Phosphatase (38-126) U/L Troponin I 0.094 H* (0.000-0.034) ng/mL NT-Pro-B Natriuret Pep (<300) pg/mL Serum Total Protein (6.3-8.2) g/dL Albumin (3.5-5.0) g/dL Urine Color (Yellow) Urine Appearance (Clear) Urine pH (4.6-8.0) Ur Specific Basin (1.005-1.030) Urine Protein (Negative) Urine Glucose (UA) (Negative) mg/dL Urine Ketones (Negative) Urine Blood (Negative) Urine Nitrite (Negative) Urine Bilirubin (Negative) Urine Urobilinogen (0.2) mg/dL Ur Leukocyte Esterase (Negative) U Hyaline Cast (Auto) (0-2) /LPF Urine Microscopic RBC (0-5) /HPF Urine Microscopic WBC (0-5) /HPF Ur Epithelial Cells (None Seen) /HPF Urine Bacteria (None Seen) /HPF Urine Culture Reflexed (NO) Influenza Type A Ag NEGATIVE (NEGATIVE) Influenza Type B Ag NEGATIVE (NEGATIVE) RSV (PCR) NEGATIVE (NEGATIVE) SARS-CoV-2 (PCR) NEGATIVE (NEGATIVE) 03/19/23 03/19/23 03/20/23 Range/Units 16:48 19:40 05:40 WBC 7.6 (4.0-10.5) x10^3/uL RBC 4.79 (4.1-5.4) x10^6/uL Hgb 13.5 (12.0-16.0) g/dL Hct 41.1 (35-47) % MCV 85.8 (78-100) fL MCH 28.2 (26-32) pg MCHC 32.8 (32-36) g/dL RDW 13.5 (11.5-14.0) % Plt Count 232 (150-450) x10^3/uL MPV 10.5 (7.5-11.0) fL Gran % (36.0-66.0) % Immature Gran % (Auto) (0.00-0.4) % Nucleat RBC Rel Count (0.00-0.1) % Eos # (Auto) (0-0.5) x10^3/uL Immature Gran # (Auto) (0.00-0.03) x10^3u/L Absolute Lymphs (auto) (1.0-4.6) x10^3/uL Absolute Monos (auto) (0.0-1.3) x10^3/uL Absolute Nucleated RBC (0.00-0.01) x10^3u/L Lymphocytes % (24.0-44.0) % Monocytes % (0.0-12.0) % Eosinophils % (0.00-5.0) % Basophils % (0.0-0.4) % Absolute Granulocytes (1.4-6.9) x10^3/uL Basophils # (0-0.4) x10^3/uL APTT (25.1-36.5) SECONDS Sodium (137-145) mmol/L Potassium (3.5-5.1) mmol/L Chloride (98-107) mmol/L Carbon Dioxide (22-30) mmol/L Anion Gap (5-15) MEQ/L BUN (7-17) mg/dL Creatinine (0.52-1.04) mg/dL Estimated GFR ML/MIN Glucose (74-106) mg/dL Lactic Acid (0.4-2.0) Calcium (8.4-10.2) mg/dL Magnesium (1.6-2.3) mg/dL Total Bilirubin (0.2-1.3) mg/dL AST (14-36) U/L ALT (0-35) U/L Alkaline Phosphatase (38-126) U/L Troponin I 0.068 H* (0.000-0.034) ng/mL NT-Pro-B Natriuret Pep (<300) pg/mL Serum Total Protein (6.3-8.2) g/dL Albumin (3.5-5.0) g/dL Urine Color Yellow (Yellow) Urine Appearance Turbid A (Clear) Urine pH 6.0 (4.6-8.0) Ur Specific Basin 1.015 (1.005-1.030) Urine Protein 30 (Negative) Urine Glucose (UA) Negative (Negative) mg/dL Urine Ketones Trace A (Negative) Urine Blood Negative (Negative) Urine Nitrite Negative (Negative) Urine Bilirubin Negative (Negative) Urine Urobilinogen 1.0 A (0.2) mg/dL Ur Leukocyte Esterase Large A (Negative) U Hyaline Cast (Auto) None Seen (0-2) /LPF Urine Microscopic RBC 0-2 (0-5) /HPF Urine Microscopic WBC 21-50 A (0-5) /HPF Ur Epithelial Cells Few (None Seen) /HPF Urine Bacteria Moderate A (None Seen) /HPF Urine Culture Reflexed YES (NO) Influenza Type A Ag (NEGATIVE) Influenza Type B Ag (NEGATIVE) RSV (PCR) (NEGATIVE) SARS-CoV-2 (PCR) (NEGATIVE) 03/20/23 03/20/23 Range/Units 05:40 05:40 WBC (4.0-10.5) x10^3/uL RBC (4.1-5.4) x10^6/uL Hgb (12.0-16.0) g/dL Hct (35-47) % MCV (78-100) fL MCH (26-32) pg MCHC (32-36) g/dL RDW (11.5-14.0) % Plt Count (150-450) x10^3/uL MPV (7.5-11.0) fL Gran % (36.0-66.0) % Immature Gran % (Auto) (0.00-0.4) % Nucleat RBC Rel Count (0.00-0.1) % Eos # (Auto) (0-0.5) x10^3/uL Immature Gran # (Auto) (0.00-0.03) x10^3u/L Absolute Lymphs (auto) (1.0-4.6) x10^3/uL Absolute Monos (auto) (0.0-1.3) x10^3/uL Absolute Nucleated RBC (0.00-0.01) x10^3u/L Lymphocytes % (24.0-44.0) % Monocytes % (0.0-12.0) % Eosinophils % (0.00-5.0) % Basophils % (0.0-0.4) % Absolute Granulocytes (1.4-6.9) x10^3/uL Basophils # (0-0.4) x10^3/uL APTT (25.1-36.5) SECONDS Sodium 135 L (137-145) mmol/L Potassium 3.6 (3.5-5.1) mmol/L Chloride 103 (98-107) mmol/L Carbon Dioxide 24 (22-30) mmol/L Anion Gap 11.6 (5-15) MEQ/L BUN 27 H (7-17) mg/dL Creatinine 1.85 H (0.52-1.04) mg/dL Estimated GFR 28.4 ML/MIN Glucose 113 H (74-106) mg/dL Lactic Acid (0.4-2.0) Calcium 8.3 L (8.4-10.2) mg/dL Magnesium (1.6-2.3) mg/dL Total Bilirubin 1.10 (0.2-1.3) mg/dL AST 29 (14-36) U/L ALT 29 (0-35) U/L Alkaline Phosphatase 94 (38-126) U/L Troponin I 0.054 H* (0.000-0.034) ng/mL NT-Pro-B Natriuret Pep (<300) pg/mL Serum Total Protein 7.1 (6.3-8.2) g/dL Albumin 3.8 (3.5-5.0) g/dL Urine Color (Yellow) Urine Appearance (Clear) Urine pH (4.6-8.0) Ur Specific [place] (1.005-1.030) Urine Protein (Negative) Urine Glucose (UA) (Negative) mg/dL Urine Ketones (Negative) Urine Blood (Negative) Urine Nitrite (Negative) Urine Bilirubin (Negative) Urine Urobilinogen (0.2) mg/dL Ur Leukocyte Esterase (Negative) U Hyaline Cast (Auto) (0-2) /LPF Urine Microscopic RBC (0-5) /HPF Urine Microscopic WBC (0-5) /HPF Ur Epithelial Cells (None Seen) /HPF Urine Bacteria (None Seen) /HPF Urine Culture Reflexed (NO) Influenza Type A Ag (NEGATIVE) Influenza Type B Ag (NEGATIVE) RSV (PCR) (NEGATIVE) SARS-CoV-2 (PCR) (NEGATIVE) - Radiology Exams Ordered Rad Exams-Entire Visit: Radiology Procedures Category Date Time Status CHEST 1 VIEW (PORTABLE) Stat Exams 03/19/23 11:19 Completed - Procedures and Test Procedures and Tests throughout Hospitalization: Therapy Orders & Screens 03/19/23 11:49 Respiratory Therapy Assessment DAILY Comment: 03/19/23 13:43 Oxygen Nasal Cannula 2 lpm Comment: Respiratory Therapy Consult ONCE Comment: Reason For Exam: 03/20/23 05:15 EKG ROUTINE Comment: Diagnosis: bronchitis <DEN LUEVANO - Last Filed: 03/20/23 10:43> - Vitals & Intake/Output Vital Signs: Vital Signs Temperature 97 F 03/20/23 07:06 Pulse Rate 79 03/20/23 07:06 Respiratory Rate 16 03/20/23 07:06 Blood Pressure 128/58 03/20/23 07:06 O2 Sat by Pulse Oximetry 96 03/20/23 07:06 Intake & Output: Intake & Output 03/18/23 03/19/23 03/20/23 03/21/23 11:59 11:59 11:59 11:59 Intake Total 480 Balance 480 Weight 90.718 kg 96 kg - Lab Result Diagrams: 03/20/23 05:40 03/20/23 05:40 Lab Results-Last 24 Hrs: Lab Results-Last 24 Hours 03/19/23 03/20/23 03/20/23 Range/Units 19:40 05:40 05:40 WBC 7.6 (4.0-10.5) x10^3/uL RBC 4.79 (4.1-5.4) x10^6/uL Hgb 13.5 (12.0-16.0) g/dL Hct 41.1 (35-47) % MCV 85.8 (78-100) fL MCH 28.2 (26-32) pg MCHC 32.8 (32-36) g/dL RDW 13.5 (11.5-14.0) % Plt Count 232 (150-450) x10^3/uL MPV 10.5 (7.5-11.0) fL Sodium 135 L (137-145) mmol/L Potassium 3.6 (3.5-5.1) mmol/L Chloride 103 (98-107) mmol/L Carbon Dioxide 24 (22-30) mmol/L Anion Gap 11.6 (5-15) MEQ/L BUN 27 H (7-17) mg/dL Creatinine 1.85 H (0.52-1.04) mg/dL Estimated GFR 28.4 ML/MIN Glucose 113 H (74-106) mg/dL Calcium 8.3 L (8.4-10.2) mg/dL Total Bilirubin 1.10 (0.2-1.3) mg/dL AST 29 (14-36) U/L ALT 29 (0-35) U/L Alkaline Phosphatase 94 (38-126) U/L Troponin I 0.068 H* (0.000-0.034) ng/mL Serum Total Protein 7.1 (6.3-8.2) g/dL Albumin 3.8 (3.5-5.0) g/dL 03/20/23 Range/Units 05:40 WBC (4.0-10.5) x10^3/uL RBC (4.1-5.4) x10^6/uL Hgb (12.0-16.0) g/dL Hct (35-47) % MCV (78-100) fL MCH (26-32) pg MCHC (32-36) g/dL RDW (11.5-14.0) % Plt Count (150-450) x10^3/uL MPV (7.5-11.0) fL Sodium (137-145) mmol/L Potassium (3.5-5.1) mmol/L Chloride (98-107) mmol/L Carbon Dioxide (22-30) mmol/L Anion Gap (5-15) MEQ/L BUN (7-17) mg/dL Creatinine (0.52-1.04) mg/dL Estimated GFR ML/MIN Glucose (74-106) mg/dL Calcium (8.4-10.2) mg/dL Total Bilirubin (0.2-1.3) mg/dL AST (14-36) U/L ALT (0-35) U/L Alkaline Phosphatase (38-126) U/L Troponin I 0.054 H* (0.000-0.034) ng/mL Serum Total Protein (6.3-8.2) g/dL Albumin (3.5-5.0) g/dL - Radiology Exams Ordered Rad Exams-Entire Visit: Radiology Procedures Category Date Time Status CHEST 1 VIEW (PORTABLE) Stat Exams 03/19/23 11:19 Completed - Procedures and Test Procedures and Tests throughout Hospitalization: Therapy Orders & Screens 03/19/23 11:49 Respiratory Therapy Assessment DAILY Comment: 03/19/23 13:43 Oxygen Nasal Cannula 2 lpm Comment: Respiratory Therapy Consult ONCE Comment: Reason For Exam: 03/20/23 05:15 EKG ROUTINE Comment: Diagnosis: bronchitis <JARON HERMAN - Last Filed: 03/20/23 20:22> Discharge Exam General Appearance: no apparent distress Neurologic Exam: alert, oriented x 3, cooperative Eye Exam: PERRL Ears, Nose, Throat Exam: normal ENT inspection Neck Exam: normal inspection Respiratory Exam: crackles/rales Cardiovascular Exam: regular rate/rhythm Gastrointestinal/Abdomen Exam: soft, normal bowel sounds Pelvic Exam: deferred Rectal Exam: deferred Back Exam: normal inspection Extremity Exam: normal inspection <DEN LUEVANO - Last Filed: 03/20/23 10:43> Final Diagnosis/Problem List - Final Discharge Diagnosis/Problem (1) Acute bronchitis Status: Acute Code(s): J20.9 - ACUTE BRONCHITIS, UNSPECIFIED (2) Acute on chronic renal failure Status: Acute Code(s): N17.9 - ACUTE KIDNEY FAILURE, UNSPECIFIED; N18.9 - CHRONIC KIDNEY DISEASE, UNSPECIFIED (3) Elevated troponin Status: Acute Code(s): R79.89 - OTHER SPECIFIED ABNORMAL FINDINGS OF BLOOD CHEMISTRY (4) HTN (hypertension) Status: Acute Code(s): I10 - ESSENTIAL (PRIMARY) HYPERTENSION (5) Obesity (BMI 30.0-34.9) Status: Acute Code(s): E66.9 - OBESITY, UNSPECIFIED (6) UTI (urinary tract infection) Status: Acute Code(s): N39.0 - URINARY TRACT INFECTION, SITE NOT SPECIFIED <DEN LUEVANO - Last Filed: 03/20/23 10:43> <DEN LUEVANO - Last Filed: 03/20/23 10:43> <JARON HERMAN - Last Filed: 03/20/23 20:22> - Discharge Disposition: Home, Self-Care Condition: Stable Prescriptions: New Cefdinir 300 mg PO BID 7 Days #14 cap Continue Amlodipine Besylate 5 mg [Norvasc 5 mg] 10 mg PO UD Ergocalciferol (Vitamin D2) [Vitamin D2] 50,000 unit PO WEEKLY Indapamide 2.5 ea PO DAILY Instructions: Acute Bronchitis, Adult (DC), Urinary Tract Infection, Adult (DC), Cefdinir Follow up with: SADA WALTERS MD [Primary Care Provider] - Call for Appointment HOLLY Encounter - HOLLY Encounter Attestation HOLLY Encounter Attestation: "AlanalyseenandJUAN Bellamy andhavediscussed pertinent aspects of their care with Den Garcia agree with the history, physical exam (any modifications based on my personal exam will be noted below), assessment, and plan as outlined in original note. Please see immediately below for my summary of findings and additional assessment and plan along with any meaningful corrections/explanations to the Subjective/Objective portions of the HOLLY note will be noted." My portion of the encounter took place via telemedicine. <JARON HERMAN - Last Filed: 03/20/23 20:22>
== END 2023-03-20 11:49 | disposition home or self-care (01) ==
LOC: ED 10:34 → MED SURG 13:40
PROVIDERS: ADMIT Internal Medicine; ATTEND Internal Medicine
DX: J20.9 Acute bronchitis, unspecified (principal); N17.9 Acute kidney failure, unspecified; I12.9 Hypertensive chronic kidney disease with stage 1 through stage 4 chronic kidney disease, or unspecified chronic kidney disease; N18.9 Chronic kidney disease, unspecified; R79.89 Other specified abnormal findings of blood chemistry; E66.9 Obesity, unspecified; N39.0 Urinary tract infection, site not specified; E78.5 Hyperlipidemia, unspecified; Z90.5 Acquired absence of kidney; Z79.899 Other long term (current) drug therapy; Z20.828 Contact with and (suspected) exposure to other viral communicable diseases; Z86.16 Personal history of COVID-19
CPT/HCPCS: 0241U; 36000; 36415; 71045; 80053; 81001; 83605; 83735; 83880; 84484; 85025; 85027; 85730; 87040; 87086; 93005; 93041; 93268; 94640; 94762; 96365; 96367; 99285; J0456; J0696; J1644; A9270-GY; G0378